=== PATIENT | female | born 1955 | race African-American/Black ===

== ENCOUNTER 2018-10-08 05:14 | Emergency (ER) | payer OTHER ==
[~2018-10-08] VITALS: Ht 162.6 cm; Wt 92.5 kg
[2018-10-08 05:16] VITALS: BP 138/74
--- NOTE | 2018-10-08 08:03 | NUR ---
DANIELLE CALLED FOR HOMELESS RESOURCES/PLACEMENT
--- NOTE | 2018-10-08 08:40 | NUR ---
KAMRYN SANTOS WITH PT; PROVIDED WITH RESOURCES. MD SALEH.
--- NOTE | 2018-10-08 08:46 | NUR ---
SW received a call from ER ARTURO Ly regarding homeless discharge and resources. Pt. is a 63 year old male who was brought in by paramedics because it was too cold outside. KAMRYN met with pt. bedside. Pt. is alert and oriented x 4. Pt. appeared disheveled and smelled of urine. Pt. is cooperative and pleasant with SW during the assessment. Pt. states she is homeless and has been for a while. Pt. states she receives $1000 per month in [place]. KAMRYN offered pt. [facility] and pt. would like her contact since she is not able to pay for the independent living today. KAMRYN gave pt. [facility] contact number . Pt. stated she will borrow the money from her vegetable cook and call [facility]. KAMRYN offered pt. [facility] placement and homeless long-term resources that pt. accepted. KAMRYN explained to pt. regarding strip picker locations for winter long-term for [facility]. Pt. understood. Pt. states she has a membership with [employer] and goes there to take showers etc. Pt. stated she will go to [facility] once she leaves the hospital. [facility] is located at [address] [place] [address]. Pt. denies any drug use but states she drinks a beer every now and then. Pt. denies any suicidal and homicidal ideations. Pt. was given warm clothes, shoes, breakfast and TAP card. Homeless Patient Waiver Form was signed by pt. and placed in pt's chart. ED ARTURO Ly, Dr. Aponte and NIRMALA Kern were updated on pt's discharge plan. No other social service needs are requested at this time. SW is available, if needed.
== END 2018-10-08 09:18 | disposition home or self-care (01) ==
LOC: EDBD 05:16 → ER 05:16
DX: T69.9XXA Effect of reduced temperature, unspecified, initial encounter (principal); X31.XXXA Exposure to excessive natural cold, initial encounter; Z59.0 Homelessness; I10 Essential (primary) hypertension; Z86.73 Personal history of transient ischemic attack (TIA), and cerebral infarction without residual deficits

== ENCOUNTER 2019-06-08 00:03 | Emergency (ER) | payer MEDICARE, OTHER ==
[~2019-06-08] VITALS: Ht 167.6 cm; Wt 67.1 kg
--- NOTE | 2019-06-08 00:15 | NUR ---
PT BIBRA C/O ABDOMINAL PAIN X1 DAY. PT ALSO C/O NAUSEA AND VOMITTING. PT DENIES DYSURIA, HEMATURIA, CP, SOB, DIARRHEA. PT STATES "I WAS MOVING BOXES AROUND AND MUST'VE OVER-WORKED MYSELF". PT AAOX4, PT APPEARS UNCOMFORTABLE . NOTED HYPERTENSION ON ARRIVAL, MD AWARE. PT PLACED ON CONTINUOUS WOOL TAMPER AND PULSE OX, WILL CONTINUE TO MONITOR
--- NOTE | 2019-06-08 00:28 | NUR ---
ER MD AT BEDSIDE FOR EVALUATION
[2019-06-08] MEDS ORDERED: ONDANSETRON HCL/PF 4 MG/2 ML VIAL ONE ×2 (00:32→05:58)
--- NOTE | 2019-06-08 00:40 | NUR ---
IV INITIATED R FOREARM 20G. LABS DRAWN FROM SITE. FITNESS CLUB MANAGER AT BEDSIDE FOR COLLECTION. IV INTACT AND PATENT, PLACED ON SALINE LOCK
[2019-06-08 00:50] LABS: BASOPHILS # (AUTO) 0.1 /CMM (0.0-0.2); BASOPHILS % (AUTO) 0.7 % (0.0-2.0); EOSINOPHILS % (AUTO) 0.2 % (0.0-6.0); HEMATOCRIT 34 % (33-45); HEMOGLOBIN 11.5 g/dL (11.5-14.8); LYMPHOCYTES # (AUTO) 1.7 /CMM (0.8-4.8); LYMPHOCYTES % (AUTO) 20.5 % (20.0-44.0); MEAN CORPUSCULAR HGB CONC 34 g/dl (31.0-36.0); MEAN CORPUSCULAR VOLUME 84 fL (82-100); MONOCYTES # (AUTO) 0.4 /CMM (0.1-1.30); MONOCYTES % (AUTO) 5.4 % (2.0-12.0); NEUTROPHILS # (AUTO) 5.9 /CMM (1.8-8.9); NEUTROPHILS % (AUTO) 73.2 % (43.0-81.0); PLATELET COUNT (AUTO) 150 /CMM (150-450); RED BLOOD CELL COUNT(AUTO) 4.05 MIL/uL (4.0-5.2); WHITE BLOOD COUNT (AUTO) 8.1 K/uL (4.3-11.0)
--- NOTE | 2019-06-08 00:52 | NUR ---
PT UNABLE TO PROVIDE URINE SAMPLE AT THIS TIME. ER AWARE
[2019-06-08 00:56] LABS: CALCIUM, SERUM 9.9 mg/dL (8.5-10.1); CREATININE 1.1 mg/dL (0.6-1.3); POTASSIUM 3.7 mmol/L (3.5-5.1)
[2019-06-08] MEDS ORDERED: IV NS 0.9% 1,000 ML BAG IV ONE (01:00)
[2019-06-08] MEDS ORDERED: ONDANSETRON HCL/PF 4 MG/2 ML VIAL IVP ONE (01:00)
[2019-06-08 01:03] LABS: ALBUMIN 5.1 g/dL (3.4-5.0); BILIRUBIN,DIRECT 0.4 mg/dL (0.0-0.2); BILIRUBIN,TOTAL 1.3 mg/dL (0.2-1.0); TOTAL PROTEIN, SERUM 9.2 g/dL (6.4-8.2)
[2019-06-08] MEDS ORDERED: IOHEXOL-300 100 ML VIAL IV ONE (01:03)
--- NOTE | 2019-06-08 01:13 | NUR ---
PT BROUGHT BY RADIOLOGY TO CT
--- NOTE | 2019-06-08 01:25 | NUR ---
PT RETURNED FROM CT
[2019-06-08] MEDS ORDERED: IV NS 0.9% 1,000 ML IV PRN ×2 (01:30)
[2019-06-08 01:49] LABS: APPEARANCE,URINE Slightly Cloudy (CLEAR); BILIRUBIN,URINE SMALL (NEGATIVE); BLOOD, URINE Small Ery/uL (NEGATIVE); COLOR,URINE Other (YELLOW); KETONES,URINE >=160 (NEGATIVE); LEUKOCYTE ESTERASE ,URINE Negative (NEGATIVE); NITRITE, URINE Negative (NEGATIVE); PH,URINE 5.5 (5.0-8.0); PROTEIN,URINE 100 mg/dl (NEGATIVE); UGLUCOSE Negative (NEGATIVE); UROBILINOGEN,URINE 0.2 EU/dL (0.2)
[2019-06-08] MEDS ORDERED: MORPHINE SULFATE INJ 2 MG/ML DISP.SYRIN IV ONE ×2 (02:00→06:00)
[2019-06-08] MEDS ORDERED: MORPHINE SULFATE INJ 4 MG/ML DISP.SYRIN ONE (02:17)
[2019-06-08 02:43] LABS: BACTERIA,URINE Few /HPF (None Seen); SQUAMOUS EPITHELIAL CELL,UR Many /HPF (None Seen); YEAST,URINE Few /HPF (None Seen)
--- NOTE | 2019-06-08 05:15 | NUR ---
JAVA WEB SERVICES DEVELOPER AT BEDSIDE FOR REDRAW
[2019-06-08 05:31] LABS: CALCIUM, SERUM 8.1 mg/dL (8.5-10.1); POTASSIUM 3.6 mmol/L (3.5-5.1)
[2019-06-08] MEDS ORDERED: MORPHINE SULFATE INJ 2 MG/ML DISP.SYRIN ONE (05:58)
[2019-06-08] MEDS ORDERED: ONDANSETRON HCL/PF 4 MG/2 ML VIAL IV ONE (06:00)
[2019-06-08 06:58] VITALS: BP 189/91
--- NOTE | 2019-06-08 06:59 | NUR ---
Patient given written and verbal discharge instructions. Patient verbalizes understanding of instructions. Patient is ambulatory with steady gait. Refuses offer of fpc placement. Patient given list of available shelters in surrounding area.IV removed. Catheter intact and site benign. Pressure and 4x4 applied to site. No bleeding noted.
== END 2019-06-08 07:05 | disposition home or self-care (01) ==
LOC: ER 00:06
DX: R56.9 Unspecified convulsions (principal); R11.2 Nausea with vomiting, unspecified; R10.30 Lower abdominal pain, unspecified; I10 Essential (primary) hypertension; E11.9 Type 2 diabetes mellitus without complications; F17.200 Nicotine dependence, unspecified, uncomplicated; Z59.0 Homelessness; Z86.73 Personal history of transient ischemic attack (TIA), and cerebral infarction without residual deficits
CPT/HCPCS: 36415; 70450; 74177; 80048 ×2; 80076; 81001; 82550; 83690; 85025; 96361; 96374; 96375; 96376; 99284; J2270 ×2; J2405 ×2; J7030 ×3; Q9967; 81000-TC

== ENCOUNTER 2019-06-09 20:10 | Emergency (ER) | payer OTHER ==
[~2019-06-09] VITALS: Ht 170.2 cm; Wt 63.5 kg
[2019-06-09 20:14] VITALS: BP 113/79
[2019-06-09] MEDS ORDERED: ONDANSETRON HCL 4 MG/5 ML SOLUTION PO ONE (20:30)
[2019-06-09] MEDS ORDERED: LEVETIRACETAM (250 MG) 250 MG TABLET PO ONE ×2 (20:30→21:02)
[2019-06-09] MEDS ORDERED: ONDANSETRON HCL 4 MG/5 ML SOLUTION ONE (21:02)
== END 2019-06-09 21:38 | disposition home or self-care (01) ==
LOC: ER 20:11
DX: R11.0 Nausea (principal); G40.909 Epilepsy, unspecified, not intractable, without status epilepticus; I10 Essential (primary) hypertension; E11.9 Type 2 diabetes mellitus without complications; Z86.73 Personal history of transient ischemic attack (TIA), and cerebral infarction without residual deficits; Z59.0 Homelessness
CPT/HCPCS: Q0162

== ENCOUNTER 2019-11-06 21:14 | Emergency (ER) | payer OTHER ==
[~2019-11-06] VITALS: Ht 170.2 cm; Wt 63.5 kg
--- NOTE | 2019-11-06 21:23 | NUR ---
BIBRA FOR C/O BILATERAL KNEE PAIN. - TAUMA
[2019-11-06] MEDS ORDERED: ACETAMINOPHEN ES 500 MG TABLET PO ONE (21:30)
[2019-11-06] MEDS ORDERED: LISINOPRIL (10MG) 10 MG TABLET PO SCH (21:30)
[2019-11-06] MEDS ORDERED: ACETAMINOPHEN ES 500 MG TABLET ONE (21:40)
[2019-11-06] MEDS ORDERED: LISINOPRIL (10MG) 10 MG TABLET ONE (21:44)
--- NOTE | 2019-11-06 22:07 | NUR ---
Patient refused written and verbal discharge instructions. Refuses offer of jail placement and stated "go away". Patient given warm balnket, socks and snacks. has proper clothes on. pt will arrange her own transportation.
[2019-11-06 22:13] VITALS: BP 153/80
== END 2019-11-06 22:18 | disposition home or self-care (01) ==
LOC: ER 21:15
DX: I10 Essential (primary) hypertension (principal); F10.10 Alcohol abuse, uncomplicated; M25.50 Pain in unspecified joint; Z91.14 Patient's other noncompliance with medication regimen; E11.9 Type 2 diabetes mellitus without complications; Z86.73 Personal history of transient ischemic attack (TIA), and cerebral infarction without residual deficits; Z59.0 Homelessness; Y90.9 Presence of alcohol in blood, level not specified

== ENCOUNTER 2020-11-30 14:46 | Emergency (ER) | payer OTHER ==
[~2020-11-30] VITALS: Ht 165.1 cm; Wt 63.5 kg
--- NOTE | 2020-11-30 15:00 | NUR ---
[facility]IB [facility], ETOH FOUND PASSED OUT W/ EMPTY BOTTLES BG [address] [place] TEAM LEADER. HYPOTENSIVE PER EMS REPORT. PATIENT A/OX3, BREATHING EVEN AND UNLABORED, NO SOB NOTED, NEEDS ATTENDED.
[2020-11-30] MEDS: IV NS 0.9% 1,000 ML BAG IV ONE (15:13)
[2020-11-30 15:23] LABS: BASOPHILS # (AUTO) 0.1 /CMM (0.0-0.2); BASOPHILS % (AUTO) 1.4 % (0.0-2.0); EOSINOPHILS % (AUTO) 1.6 % (0.0-6.0); HEMATOCRIT 25 % (33-45); HEMOGLOBIN 8.3 g/dL (11.5-14.8); LYMPHOCYTES % (AUTO) 44.7 % (20.0-44.0); MEAN CORPUSCULAR HGB CONC 33 g/dl (31.0-36.0); MEAN CORPUSCULAR VOLUME 88 fL (82-100); MONOCYTES # (AUTO) 0.4 /CMM (0.1-1.30); MONOCYTES % (AUTO) 5.9 % (2.0-12.0); NEUTROPHILS # (AUTO) 3.2 /CMM (1.8-8.9); NEUTROPHILS % (AUTO) 46.4 % (43.0-81.0); PLATELET COUNT (AUTO) 380 /CMM (150-450); RED BLOOD CELL COUNT(AUTO) 2.88 MIL/uL (4.0-5.2); WHITE BLOOD COUNT (AUTO) 6.8 K/uL (4.3-11.0)
[2020-11-30 15:46] LABS: CARBON DIOXIDE 24 mmol/L (21-32); CHLORIDE 109 mmol/L (98-107); CREATININE 0.8 mg/dL (0.6-1.3); GLUCOSE 77 mg/dL (74-106); POTASSIUM 3.6 mmol/L (3.5-5.1); SODIUM SERUM 149 mmol/L (136-145); UREA NITROGEN, BLOOD 14 mg/dL (7-18)
[2020-11-30 15:53] LABS: ALANINE AMINOTRANSFERASE 21 U/L (12-78); ALBUMIN 3.5 g/dL (3.4-5.0); ALKALINE PHOSPHATASE 101 U/L (46-116); ASPARTATE AMINOTRANSFERASE 37 U/L (15-37); BILIRUBIN,DIRECT 0.1 mg/dL (0.0-0.2); BILIRUBIN,TOTAL 0.2 mg/dL (0.2-1.0); LIPASE 77 U/L (73-393); TOTAL PROTEIN, SERUM 7.4 g/dL (6.4-8.2)
[2020-11-30 16:02] LABS: BILIRUBIN,URINE NEGATIVE (NEGATIVE); COLOR,URINE YELLOW (YELLOW); LEUKOCYTE ESTERASE ,URINE LARGE (NEGATIVE); NITRITE, URINE NEGATIVE (NEGATIVE); PROTEIN,URINE TRACE mg/dl (NEGATIVE); UGLUCOSE NEGATIVE (NEGATIVE); UROBILINOGEN,URINE 0.2 EU/dL (0.2)
[2020-11-30] MEDS ORDERED: LEVE500T20 PO (16:14)
[2020-11-30] MEDS ORDERED: ATOR10TA PO (16:14)
[2020-11-30] MEDS ORDERED: LISI-768 PO (16:14)
[2020-11-30] MEDS ORDERED: PANT40TA49 PO (16:14)
[2020-11-30] MEDS ORDERED: POTA8TAB3 PO (16:14)
[2020-11-30] MEDS ORDERED: FOLI0.4T6 PO (16:14)
[2020-11-30] MEDS ORDERED: CEFTRIAXONE 1GM BAG (ER ONLY) 50 ML IV ONE (16:23)
[2020-11-30] MEDS: IV LR 1000 ML 1,000 ML IV ONE (16:24)
[2020-11-30] MEDS: CEFTRIAXONE 1GM BAG (ER ONLY) 1 GM/50 ML PIGGYBACK IV ONE (16:24)
--- NOTE | 2020-11-30 16:31 | NUR ---
room [facility]
--- NOTE | 2020-11-30 16:36 | NUR ---
COVID SWAB SENT
[2020-11-30 16:40] LABS: BACTERIA,URINE Many /HPF (None Seen); SQUAMOUS EPITHELIAL CELL,UR Few /HPF (None Seen); WBC,URINE 81-100 /HPF (0-3)
[2020-11-30] MEDS ORDERED: ACETAMINOPHEN 325 MG TABLET PO PRN (17:00)
[2020-11-30] MEDS ORDERED: CEFTRIAXONE 1 G in IV D5W 50 ML IV SCH (17:00)
[2020-11-30] MEDS ORDERED: LORAZEPAM 1 MG TABLET PO PRN (17:00)
[2020-11-30] MEDS ORDERED: IV 1/2NS 1000 ML 1,000 ML IV PRN (17:00)
--- NOTE | 2020-11-30 17:31 | NUR ---
RECEIVED A CALL FROM DR. NEVILLE FROM [facility], WANTS TO FACILITATE TRANSFER TO ANOTHER HOSPITAL.
--- NOTE | 2020-11-30 17:42 | NUR ---
RECIEVED A CALL FROM [facility] CASTRO TAVERN KEEPER. REQUESTING THAT WE COLLECT A RAPID COVID TEST FROM PATIENT. STILL WORKING ON TRANSFER TO A CONTRACT FACILITY.
[2020-11-30] MEDS ORDERED: ASPIRIN EC 81 MG TABLET.DR PO SCH (17:44)
[2020-11-30] MEDS ORDERED: ATORVASTATIN 10 MG TABLET PO SCH (18:00)
--- NOTE | 2020-11-30 18:04 | NUR ---
PATIENT IS EATING DINNER AND TOLERATING WELL.
--- NOTE | 2020-11-30 18:04 | NUR ---
COVID SWAB SENT TO LAB.
--- NOTE | 2020-11-30 18:12 | NUR ---
RYAN CASTRO [phone] RESULT.
--- NOTE | 2020-11-30 19:16 | NUR ---
PATIENT IS AMBULATORY TO THE RESTROOM WITH A STEADY GAIT.
--- NOTE | 2020-11-30 19:50 | NUR ---
CALLED [facility] FOR FOLLOW UP REGARDING CT OF HEAD
--- NOTE | 2020-11-30 20:39 | NUR ---
head ct and antigen covid result were faxed to [facility]
[2020-11-30] MEDS ORDERED: LEVETIRACETAM (250 MG) 250 MG TABLET PO SCH (20:45)
--- NOTE | 2020-11-30 22:04 | NUR ---
TRANSFER INFO: TO [facility] RM: [id number] REPORT TO:JASON SILVESTRE # FOR REPORT: [phone] [facility], ETA: [phone] ACCEPTING MD: DR ROONEY
[2020-11-30] MEDS ORDERED: ONDANSETRON HCL/PF 4 MG/2 ML VIAL ONE (23:08)
[2020-11-30] MEDS: ONDANSETRON HCL/PF 4 MG/2 ML VIAL IV ONE (23:17)
--- NOTE | 2020-11-30 23:33 | NUR ---
REPORT GIVEN TO JASON SILVESTRE
--- NOTE | 2020-12-01 00:50 | NUR ---
CALLED RYAN THE TO INQUIRE ABOUT THE TRANSPORTATION. NO ANSWER. LEFT A MESSAGE
--- NOTE | 2020-12-01 00:52 | NUR ---
CALLED [facility] AND SPOKE TO ANNI TO F/U WITH THE TRANSPORTATION. PER ANNI, THEY WON'T BE ABLE TO ACCOMODATE THE TRANSPO AND THEY HAVE ALREADY SPOKE TO STEPHANIE DAVIS!
--- NOTE | 2020-12-01 01:22 | NUR ---
UPDATED ETA 0330 BY [facility]
[2020-12-01] MEDS ORDERED: HYDROCODONE/APAP 10/325MG TABLET ONE (02:06)
--- NOTE | 2020-12-01 02:50 | NUR ---
PATIENT STATES THAT SHE HAS PAIN ON BOTH OF HER FEET. MD NOTIFIED. ORDERED TO GIVE NORCO-10MG PO. WILL MEDICATE PATIENT ORDERED.
[2020-12-01] MEDS: HYDROCODONE/APAP 10/325MG TABLET PO ONE (03:00)
[2020-12-01 03:21] VITALS: BP 131/79
--- NOTE | 2020-12-01 03:49 | NUR ---
REPORT GIVEN TO TRANSPORT TEAM FOR [facility]. AND TRANSFERRING RESPONSIBILITIES.
[2020-12-01] MEDS ORDERED: PANTOPRAZOLE 40 MG TABLET.DR PO SCH (07:30)
[2020-12-01] MEDS ORDERED: THIAMINE HCL 100 MG TABLET PO SCH (09:00)
[2020-12-01] MEDS ORDERED: LEVETIRACETAM (250 MG) 250 MG TABLET PO SCH (09:00)
[2020-12-01] MEDS ORDERED: LISINOPRIL (10MG) 10 MG TABLET PO SCH (09:00)
[2020-12-01] MEDS ORDERED: FOLIC ACID 1 MG TABLET PO SCH (09:00)
== END 2020-12-01 03:51 | disposition short-term general hospital (02) ==
LOC: ER 14:51
DX: T51.0X1A Toxic effect of ethanol, accidental (unintentional), initial encounter (principal); G92 Toxic encephalopathy; Y92.480 Sidewalk as the place of occurrence of the external cause; R55 Syncope and collapse; E86.0 Dehydration; N39.0 Urinary tract infection, site not specified; D64.9 Anemia, unspecified; Z86.73 Personal history of transient ischemic attack (TIA), and cerebral infarction without residual deficits; Z59.0 Homelessness; F10.129 Alcohol abuse with intoxication, unspecified; Y90.8 Blood alcohol level of 240 mg/100 ml or more; I10 Essential (primary) hypertension; Z93.1 Gastrostomy status; Z79.899 Other long term (current) drug therapy
CPT/HCPCS: 36415; 70450; 71045; 80048; 80076; 80320; 81001; 83690; 84484; 85025; 87086; 87186; 87426; 93005; 96361; 96365; 96375; 99285; J0696; J2405; J7030; J7120 ×2; C9803; G0480; U0003

== ENCOUNTER 2021-08-07 09:59 | Inpatient (IN) | payer MEDICARE, OTHER ==
[~2021-08-07] VITALS: Ht 167.6 cm; Wt 64.0 kg
[~2021-08-07 09:59] MED LIST: ATOR10TA PO; FOLI0.4T6 PO; LEVE500T20 PO; LISI-768 PO; PANT40TA49 PO; POTA8TAB3 PO
--- NOTE | 2021-08-07 10:10 | NUR ---
The patient is bibra78, from street, altered, BS 22, D50 given on scene BS went up 121 IV NS infusing. Attached to the monitor. Warm blanket provided. Will continue to monitor the patient.
[2021-08-07] MEDS ORDERED: IV NS 0.9% 1,000 ML BAG IV ONE ×2 (10:30→11:30)
--- NOTE | 2021-08-07 10:30 | NUR ---
URINE COLLECTED AND SENT TO THE LAB
--- NOTE | 2021-08-07 10:30 | NUR ---
IV LINE ESTABLISHED BLOOD DRAWN AND SENT TO LAB.
--- NOTE | 2021-08-07 10:35 | NUR ---
THE BEAR HUGGER ON
--- NOTE | 2021-08-07 10:55 | NUR ---
MOVE SHEET SUBMITTED AND CALLED FOR ICU
--- NOTE | 2021-08-07 10:57 | NUR ---
ELECTRIC MOTOR REPAIRMAN AT BEDSIDE FOR XRAY.
[2021-08-07 10:59] LABS: CALCIUM, SERUM 8.4 mg/dL (8.5-10.1); CHLORIDE 96 mmol/L (98-107); CREATININE 2.4 mg/dL (0.6-1.3); GLUCOSE 111 mg/dL (74-106); POTASSIUM 4.2 mmol/L (3.5-5.1); SODIUM SERUM 139 mmol/L (136-145); UREA NITROGEN, BLOOD 36 mg/dL (7-18)
--- NOTE | 2021-08-07 11:00 | NUR ---
CALLED FOR PICC LINE
[2021-08-07 11:04] LABS: BASOPHILS # (AUTO) 0.1 K/uL (0.0-0.2); BASOPHILS % (AUTO) 1.2 % (0.0-2.0); EOSINOPHILS % (AUTO) 0.1 % (0.0-6.0); HEMATOCRIT 30 % (33-45); HEMOGLOBIN 9.7 g/dL (11.5-14.8); LYMPHOCYTES # (AUTO) 1.4 K/uL (0.8-4.8); LYMPHOCYTES % (AUTO) 16.8 % (20.0-44.0); MEAN CORPUSCULAR HGB CONC 33 g/dl (31.0-36.0); MEAN CORPUSCULAR VOLUME 84 fL (82-100); MONOCYTES # (AUTO) 0.1 K/uL (0.1-1.30); MONOCYTES % (AUTO) 1.4 % (2.0-12.0); NEUTROPHILS # (AUTO) 6.7 K/uL (1.8-8.9); NEUTROPHILS % (AUTO) 80.5 % (43.0-81.0); PLATELET COUNT (AUTO) 412 K/uL (150-450); RED BLOOD CELL COUNT(AUTO) 3.54 MIL/uL (4.0-5.2); WHITE BLOOD COUNT (AUTO) 8.4 K/uL (4.3-11.0)
[2021-08-07 11:06] LABS: BILIRUBIN,URINE SMALL (NEGATIVE); COLOR,URINE YELLOW (YELLOW); LEUKOCYTE ESTERASE ,URINE NEGATIVE (NEGATIVE); NITRITE, URINE NEGATIVE (NEGATIVE); PH,URINE 5.5 (5.0-8.0); PROTEIN,URINE 100 mg/dl (NEGATIVE); UGLUCOSE NEGATIVE (NEGATIVE); UROBILINOGEN,URINE 0.2 EU/dL (0.2)
[2021-08-07 11:08] LABS: CARBON DIOXIDE 8 mmol/L (21-32)
[2021-08-07 11:14] LABS: ALANINE AMINOTRANSFERASE 60 U/L (12-78); ALBUMIN 3.6 g/dL (3.4-5.0); ALKALINE PHOSPHATASE 117 U/L (46-116); ASPARTATE AMINOTRANSFERASE 169 U/L (15-37); BILIRUBIN,DIRECT 0.2 mg/dL (0.0-0.2); BILIRUBIN,TOTAL 0.4 mg/dL (0.2-1.0); TOTAL PROTEIN, SERUM 7.3 g/dL (6.4-8.2)
[2021-08-07] MEDS ORDERED: CEFTRIAXONE 1GM BAG (ER ONLY) 50 ML IV ONE ×2 (11:15→11:30)
--- NOTE | 2021-08-07 11:27 | NUR ---
COVID ANTIGEN SWAB DONE AND SENT TO THE LAB
--- NOTE | 2021-08-07 11:29 | NUR ---
[facility] CALLED SENIOR JAVA DATA ARCHITECT PAGED.
--- NOTE | 2021-08-07 11:46 | NUR ---
COVID PCR SWAB DONE AND SENT TO THE LAB
[2021-08-07 11:48] LABS: BACTERIA,URINE Few /HPF (None Seen); RBC,URINE 0-2 /HPF (0-2); SQUAMOUS EPITHELIAL CELL,UR Moderate /HPF (None Seen); URINE AMORPHOUS URATE Moderate /HPF (None Seen); WBC,URINE 0-2 /HPF (0-3)
[2021-08-07] MEDS ORDERED: ASPIRIN 300 MG/SUPP.RECT RC ONE ×2 (12:00→12:13)
--- NOTE | 2021-08-07 12:08 | NUR ---
THE PATIENT IS AWAKE, ALERT TO SELF AND COMMUNICATES VERBALLY. THE PATIENT SAID "THANK YOU FOR HELPING ME". RESPIRATION REGULAR AND UNLABORED. ATTACHED TO THE MONITOR. BEAR HUGGER ON. WILL CONTINUE TO MONITOR THE PATIENT.
--- NOTE | 2021-08-07 12:50 | NUR ---
THE PATIENT IS TAKEN TO CT
--- NOTE | 2021-08-07 13:15 | NUR ---
THE PATIENT IS BACK FROM CT
[2021-08-07 13:16] LABS: BAND % (MANUAL) 1 % (0.0-5.0); LYMPHOCYTES % (MANUAL) 18 % (16-48); MONOCYTES % (MANUAL) 1 % (0-11.0); NEUTROPHILS % (MANUAL) 80 (42-76)
--- NOTE | 2021-08-07 18:42 | NUR ---
dr stoddard made aware of accucheck low. received and order of dextrose. the order is read back, verified. noted and carried out.
[2021-08-07] MEDS ORDERED: DEXTROSE 50%-WATER 50 ML DISP.SYRIN ONE ×2 (18:45→20:16)
[2021-08-07] MEDS ORDERED: MAGNESIUM HYDROXIDE 30 ML UDC PO PRN (19:00)
[2021-08-07] MEDS ORDERED: Z GUARD REMEDY 2 OZ OINT TP PRN (19:00)
[2021-08-07] MEDS ORDERED: MAG HYDROX/AL HYDROX/SIMETH 30 ML UDC PO PRN (19:00)
[2021-08-07] MEDS ORDERED: ENOXAPARIN SODIUM 40 MG/0.4 ML DISP.SYRIN SQ SCH (19:00)
[2021-08-07] MEDS ORDERED: ENOXAPARIN SODIUM 30 MG/0.3 ML DISP.SYRIN SQ SCH ×2 (19:00)
[2021-08-07] MEDS ORDERED: IV 1/2NS 1000 ML 1,000 ML IV PRN (19:00)
[2021-08-07] MEDS ORDERED: ZOLPIDEM TARTRATE 5 MG TABLET PO PRN (19:00)
--- NOTE | 2021-08-07 19:00 | NUR ---
DR ZAMUDIO MADE AWARE OF BLOOD SUGAR 55. NO NEW ORDER PER DR ZAMUDIO. THE PATIENT REMAINS ALERT AND ORIENTED TO SELF. IN NO APPARENT DISTRESS.
--- NOTE | 2021-08-07 19:09 | NUR ---
BLOOD SUGAR IS 82. DR ZAMUDIO MADE AWARE WITH NO NEW ORDERS.
[2021-08-07] MEDS ORDERED: DEXTROSE 50%-WATER 50 ML DISP.SYRIN IVP ONE (19:30)
[2021-08-07] MEDS ORDERED: DEXTROSE 50%-WATER 50 ML DISP.SYRIN IV PRN (19:30)
--- NOTE | 2021-08-07 19:30 | NUR ---
MRSA SWAB COLLECTED AND SENT TO LAB. PATIENT'S BELONGINGS LIST DONE.
[2021-08-07] MEDS ORDERED: ONDANSETRON HCL/PF 4 MG/2 ML VIAL ONE (19:44)
[2021-08-07] MEDS: ONDANSETRON HCL/PF 4 MG/2 ML VIAL IVP PRN (19:48)
--- NOTE | 2021-08-07 20:05 | NUR ---
REPORT GIVEN TO PERNELL SILVESTRE FOR [facility]
--- NOTE | 2021-08-07 20:19 | NUR ---
PRIOR TO TRANSFERRING PT, PT'S BG NOTED TO BE 32, ADMINISTERED D50 IVP. WILL PROVIDE PT WITH OJ WELL.
--- NOTE | 2021-08-07 20:38 | NUR ---
PT TRANSFERED PER ACLS PROTOCOL
--- NOTE | 2021-08-07 20:50 | NUR ---
RN NOTES RECEIVED CARE OF PATIENT FROM ER. TIME OF TRANSPORT WAS 2039
--- NOTE | 2021-08-07 20:51 | NUR ---
RN OPENING NOTES PATIENT TRANSFERRED TO [facility], PRESENTING WITH NAUSEA AND VOMITING, LOW BLOOD SUGAR. PATIENT IS A/O X3, ABLE TO VERBALIZE NEEDS. PATIENT'S SKIN IS INTACT. PATIENT WAS PLACED ON O2 THERAPY VIA NC AT 2L/MIN, O2 SAT IS 100 AT THIS TIME. PATIENT COMPLAINS OF PAIN, CURRENTLY PATIENT HAS NO PAIN MEDICATION ON FILE, WILL MAKE VANI GARCIA PLANT MECHANIC AWARE. WILL CLOSELY PERFORM GLUCOSE MONITORING. WILL MONITOR FOR ANY CHANGES THROUGHOUT THE SHIFT.
--- NOTE | 2021-08-07 21:13 | NUR ---
[facility] RN NOTE INFORMED VANI GARCIA BINDER STRIPPER HAND THAT PT BS KEEP ON DROPPING FROM ER AND GIVEN D50 LATEST BS WAS 32 AND AFTER D 50 CAME UP TO 134 ALSO TROP LEVEL WENT UP TO 0.355. PT IN NO DISTRESS. VANI GAVE NEW ORDERS, ORDERS NOTED AND CARRIED OUT. INFORMED NURSE GIMENEZ TO FOLLOW UP WITH PT AND MEDS.
[2021-08-07] MEDS: IV D5/0.45 NACL 1,000 ML IV PRN (21:20)
[2021-08-07] MEDS: BLOOD SUGAR DIAGNOSTIC 1 EACH STRIP IN SCH (22:35)
[2021-08-07 23:00] VITALS: BP 131/53
[2021-08-08] VITALS: BP 120/68
--- NOTE | 2021-08-08 01:12 | NUR ---
RN NOTES RANDALL FROM LABORATORY CALLED FOR A CRITICAL LAB VALUE: TROPONIN LEVEL OF 2.849. INFORMED VANI GARCIA TIRE RECAPPER. AWAITING NEW ORDERS AT THIS TIME. WILL CONTINUE TO MONITOR PATIENT.
--- NOTE | 2021-08-08 01:29 | NUR ---
[facility] RN NOTE INFORMED VANI GARCIA COMPLIANCE EXAMINER REGARDING PT TROP LEVEL WENT UP 2.849 AND PT C/O CHEST PAIN AND GENERALIZED PAIN 8/10. COMPLIANCE EXAMINER JOSE GAVE NEW ORDERS, ORDERS NOTED AND CARRIED OUT. INFORMED NURSE PERNELL TO FOLLOW UP.
[2021-08-08] MEDS ORDERED: ASPIRIN 81 MG TAB.CHEW PO ONE (01:30)
[2021-08-08] MEDS ORDERED: ENOXAPARIN SODIUM 80 MG/0.8 ML DISP.SYRIN SQ SCH ×2 (01:30→02:00)
[2021-08-08] MEDS: MORPHINE SULFATE INJ 2 MG/ML DISP.SYRIN IV PRN (01:48)
[2021-08-08] MEDS: ACETAMINOPHEN 325 MG TABLET PO PRN (03:58)
[2021-08-08 04:00] VITALS: BP 124/59
[2021-08-08 06:44] LABS: CALCIUM, SERUM 6.9 mg/dL (8.5-10.1); CREATININE 2.7 mg/dL (0.6-1.3); MAGNESIUM 1.3 mg/dL (1.8-2.4); PHOSPHORUS 2.8 mg/dL (2.5-4.9); POTASSIUM 3.7 mmol/L (3.5-5.1)
[2021-08-08 06:55] LABS: BASOPHILS % (AUTO) 0.1 % (0.0-2.0); HEMATOCRIT 24 % (33-45); HEMOGLOBIN 8.1 g/dL (11.5-14.8); LYMPHOCYTES # (AUTO) 1.1 K/uL (0.8-4.8); LYMPHOCYTES % (AUTO) 6.8 % (20.0-44.0); MEAN CORPUSCULAR HGB CONC 34 g/dl (31.0-36.0); MEAN CORPUSCULAR VOLUME 79 fL (82-100); MONOCYTES # (AUTO) 0.5 K/uL (0.1-1.30); MONOCYTES % (AUTO) 3.1 % (2.0-12.0); NEUTROPHILS # (AUTO) 14.3 K/uL (1.8-8.9); PLATELET COUNT (AUTO) 286 K/uL (150-450); RED BLOOD CELL COUNT(AUTO) 3.03 MIL/uL (4.0-5.2); WHITE BLOOD COUNT (AUTO) 15.9 K/uL (4.3-11.0)
--- NOTE | 2021-08-08 07:00 | NUR ---
RN CLOSING NOTES WILL ENDORSE PATIENT WHILE PATIENT IS IN BED, A/O X3, ABLE TO VERBALIZE NEEDS. PATIENT IS NOW ON ROOM AIR, O2 SAT IS 100 AT THIS TIME. NO DISTRESS NOTED, NO COMPLAINS OF PAIN. ALL SAFETY MEASURES IMPLEMENTED. WILL ENDORSE TO DAY SHIFT NURSE FOR [facility].
--- NOTE | 2021-08-08 07:12 | NUR ---
LOGGING OPERATIONS INSPECTOR OPENING NOTE RECEIVED PATIENT RESTING IN BED A/O X 3, ON ROOM AIR WITH NO COMPLAINTS OF SOB OR PAIN. SAFETY PROTOCOL IN PLACE, BED IN LOWEST POSITION, SIDE RAILS UP X 2, AND CALL LIGHT WITHIN REACH.
[2021-08-08] MEDS: IV D5/0.45 NACL 1,000 ML IV PRN ×2 (07:27→20:21)
[2021-08-08 07:33] LABS: THYROID STIMULATING HORMONE 0.982 uIU/mL (0.358-3.74)
[2021-08-08] MEDS: BLOOD SUGAR DIAGNOSTIC 1 EACH STRIP IN SCH ×4 (08:02→21:52)
[2021-08-08] MEDS: INSULIN REGULAR, HUMAN 100 UNIT/ML 3 ML VIAL SQ PRN ×4 (08:03→22:01)
[2021-08-08] MEDS: ASPIRIN EC 81 MG TABLET.DR PO SCH (08:16)
[2021-08-08] MEDS: PANTOPRAZOLE 40 MG TABLET.DR PO SCH (08:16)
[2021-08-08] MEDS: CEFTRIAXONE 1 G in IV D5W 50 ML IV SCH (12:30)
[2021-08-08] MEDS ORDERED: ENOXAPARIN SODIUM 60 MG/0.6 ML DISP.SYRIN SQ SCH (14:00)
--- NOTE | 2021-08-08 15:52 | NUR ---
RN NOTES RECEIVED PATIENT RESTING IN BED A/O X 3, ROOM AIR OXYGEN AT 100%, NO COMPLAINTS, NO PAIN, NO SOB, SAFETY PROTOCOL IN PLACE, BED IN LOWEST POSITION, SIDE RAILS UP X 2, ALL WHEELS LOCKED, ENCOURAGED TO EAT BREAKFAST AND LUNCH BUT DID NOT EAT MUCH, A FEW BITES EACH MEAL, ENCOURAGED WATER AND FLUIDS, SLEEPING MOST OF AM SHIFT, REPOSITIONED FOR COMFORT AND SAFETY MEASURES Q 2 HOURS OR MORE AND PATIENT ABLE TO MOVE SELF IN BED, ALL NEEDS MET IN A TIMELY MANNER, CALL LIGHT WITHIN REACH.
[2021-08-08] MEDS: METOPROLOL TARTRATE 25 MG TABLET PO SCH ×2 (16:26→21:55)
--- NOTE | 2021-08-08 19:30 | NUR ---
RN OPENING NOTE RECEIVED PATIENT IN BED. A/OX2. TOLERATING ROOM AIR. RESPIRATIONS ARE EVEN AND UNLABORED. NO S/S SOB NOTED. NO C/O PAIN AT THIS TIME. IN NO APPARENT DISTRESS. TELE MONITOR READS SINUS RHTYHM. IV ACCESS IN PHYLLIS MIDLINE RUNNING D51/2NS@125ML.HR. BED IS LOW AND LOCKED, HOB ELEVATED IN SEMI FOWLERS, SIDE RAILS UPX2, SAGE LIGHT WITHIN REACH.
[2021-08-08 20:00] VITALS: BP 156/81
[2021-08-09] VITALS: BP 139/72
[2021-08-09] MEDS: ACETAMINOPHEN 325 MG TABLET PO PRN (01:07)
--- NOTE | 2021-08-09 01:24 | NUR ---
RN NOTE CONFIRMED WITH VANI GARCIA FELLER OPERATOR, THAT PATIENT HAS AN ORDER FOR LOVENOX 60MG Q12HRS WAS DC AND NOW HAS ORDER FOR LOVENOX 60MG Q24HRS. LAST DOSE GIVEN AT 1400 THIS AFTERNOON, ASKED IF I SHOULD CHANGE ORDER TILL 1400. RECEIVED ORDER TO GIVE DOSE NOW AT 0200. ORDER READ BACK NOTED AND CARRIED OUT.
[2021-08-09] MEDS ORDERED: ENOXAPARIN SODIUM 60 MG/0.6 ML DISP.SYRIN SQ SCH (02:00)
[2021-08-09 04:00] VITALS: BP 147/86
[2021-08-09] MEDS: IV D5/0.45 NACL 1,000 ML IV PRN ×2 (06:17→15:29)
[2021-08-09 06:19] LABS: BASOPHILS # (AUTO) 0.1 K/uL (0.0-0.2); BASOPHILS % (AUTO) 0.4 % (0.0-2.0); EOSINOPHILS % (AUTO) 0.2 % (0.0-6.0); HEMATOCRIT 26 % (33-45); HEMOGLOBIN 8.5 g/dL (11.5-14.8); LYMPHOCYTES # (AUTO) 1.8 K/uL (0.8-4.8); LYMPHOCYTES % (AUTO) 13.5 % (20.0-44.0); MEAN CORPUSCULAR HGB CONC 33 g/dl (31.0-36.0); MEAN CORPUSCULAR VOLUME 81 fL (82-100); MONOCYTES # (AUTO) 0.5 K/uL (0.1-1.30); MONOCYTES % (AUTO) 3.6 % (2.0-12.0); NEUTROPHILS # (AUTO) 10.9 K/uL (1.8-8.9); NEUTROPHILS % (AUTO) 82.3 % (43.0-81.0); PLATELET COUNT (AUTO) 219 K/uL (150-450); RED BLOOD CELL COUNT(AUTO) 3.18 MIL/uL (4.0-5.2); WHITE BLOOD COUNT (AUTO) 13.3 K/uL (4.3-11.0)
[2021-08-09 06:39] LABS: CALCIUM, SERUM 8.1 mg/dL (8.5-10.1); CREATININE 1.1 mg/dL (0.6-1.3); MAGNESIUM 1.3 mg/dL (1.8-2.4); PHOSPHORUS 1.7 mg/dL (2.5-4.9); POTASSIUM 3.2 mmol/L (3.5-5.1)
--- NOTE | 2021-08-09 07:50 | NUR ---
RN CLOSING NOTE RESTING IN BED. A/OX2. NO RESP DISTRESS. NO PAIN NO DISTRESS. TELE READS SINUS RHYTHM. IV ACCESS MAINTIANED WITH D51/2NS@125ML.HR. BED REMAINS LOW AND LOCKED, HOB ELEVATED IN SEMI FOWLERS, SIDE RAILS UPX2, SAGE LIGHT WITHIN REACH. WILL ENDORSE TO ONCOMING SHIFT. Addendum: 08/09/21 at 1016 by ANNI JONES RN 0800 ROUNDS MADE ,BOTH HEELS WITH REDNESS PILLOWPLCE TOLERATED WILL MONITOR CLOSELY AND KEEP OFF LOAD AT ALL TIME
[2021-08-09 08:00] VITALS: BP 147/86
--- NOTE | 2021-08-09 08:00 | NUR ---
[facility] RN NOTE PATIENT IN BED , ALL NEEDS ATTENDED ON RA NO SOB NOTED AT THIS TIME, ON TELE MONITOR SR HR 76 , RT WRIST AND RT HAND AND RT UPPER ARM MID LINE IN PLACE ALL NEEDS ATTENDED RESTING COMFORTABLY AT THIS TIME
[2021-08-09] MEDS: METOPROLOL TARTRATE 25 MG TABLET PO SCH ×2 (09:23→20:09)
[2021-08-09] MEDS: PANTOPRAZOLE 40 MG TABLET.DR PO SCH (09:24)
[2021-08-09] MEDS: ASPIRIN EC 81 MG TABLET.DR PO SCH (09:24)
[2021-08-09] MEDS: INSULIN REGULAR, HUMAN 100 UNIT/ML 3 ML VIAL SQ PRN ×4 (09:25→22:15)
[2021-08-09] MEDS: BLOOD SUGAR DIAGNOSTIC 1 EACH STRIP IN SCH ×4 (09:28→22:14)
[2021-08-09] MEDS: POTASSIUM CHLORIDE 20 MEQ TAB.PRT.SR PO SCH ×2 (09:30→11:12)
[2021-08-09] MEDS: MAGNESIUM OXIDE 400 MG TABLET PO SCH ×2 (09:30→11:12)
[2021-08-09] MEDS ORDERED: K PHOS NEUTRAL 250 MG TABLET PO ONE (10:00)
[2021-08-09] MEDS: CEFTRIAXONE 1 G in IV D5W 50 ML IV SCH (10:05)
[2021-08-09 10:22] LABS: BAND % (MANUAL) 6 % (0.0-5.0); EOSINOPHILS % (MANUAL) 1 % (0-4); LYMPHOCYTES % (MANUAL) 10 % (16-48); MONOCYTES % (MANUAL) 5 % (0-11.0); NEUTROPHILS % (MANUAL) 76 (42-76)
[2021-08-09 10:23] LABS: METAMYELOCYTES % 2 % (0-0)
[2021-08-09 12:00] VITALS: BP 152/100
--- NOTE | 2021-08-09 12:20 | NUR ---
arelis rn note kidney us done as ordered
--- NOTE | 2021-08-09 13:30 | NUR ---
arelis ying note seen y Corrine ying access registrar updated patient condition , notified that has poor appetite
--- NOTE | 2021-08-09 15:01 | NUR ---
television inspector ote dr ibarra strike planning applications notified that bp now 173/97 hr 77 stated that will check it out
[2021-08-09 16:00] VITALS: BP 152/100
[2021-08-09] MEDS: ENOXAPARIN SODIUM 60 MG/0.6 ML DISP.SYRIN SQ SCH ×2 (16:06→16:10)
[2021-08-09] MEDS: LOSARTAN POTASSIUM 25 MG TABLET PO SCH (16:06)
--- NOTE | 2021-08-09 16:10 | NUR ---
telephone operator note Lovenox 60 mg sq given as ordered at 1605 delicate order
--- NOTE | 2021-08-09 18:27 | NUR ---
television and radio repairer note spoke with radiologist everette about cta angio stated we need clarified order ,coronary or without calcium , left a message to dr dale , awating for return call
--- NOTE | 2021-08-09 19:30 | NUR ---
RN NOTE PT RECEIVED IN BED RESTING. PT IS LETHARGIC. ON 2L OF O2 VIA NC SHOWING NO S/S OF RESP DISTRESS. BREATHING EVEN AND UNLABORED. PT IS ALERT AND ORIENTED X2-3. ON GRASSROOTS ORGANIZER SHOWING NSR. MONZON CATH NOTED. ON CARDIAC DIET. IV ACCESS NOTED ON RIGHT UPPER ARM MIDLINE. LINE FLUSHED, PATENT, AND INTACT WITH NO S/SX OF INFILTRATION. ALL SAFETY MEASURES IMPLEMENTED. CALL LIGHT WITHIN REACH. BED ALARM ON. BED LOCKED AND IN LOWEST POSITION. SIDE RAILS UP. WILL CONTINUE TO MONITOR AND ASSESS FOR ANY CHANGES DURING SHIFT.
[2021-08-09 20:00] VITALS: BP 182/98
[2021-08-09] MEDS: MORPHINE SULFATE INJ 2 MG/ML DISP.SYRIN IV PRN (20:07)
[2021-08-10] VITALS: BP 145/91
--- NOTE | 2021-08-10 01:26 | NUR ---
RN NOTE REPORT GIVEN TO NIRMALA MCKEON FOR [facility].
[2021-08-10] MEDS: IV D5/0.45 NACL 1,000 ML IV PRN (01:30)
[2021-08-10 04:00] VITALS: BP 180/95
[2021-08-10] MEDS: MORPHINE SULFATE INJ 2 MG/ML DISP.SYRIN IV PRN ×2 (04:09→21:12)
--- NOTE | 2021-08-10 04:09 | NUR ---
PRECISION LATHE OPERATOR NOTE PT C/O PAIN 04/05 ALL OVER, NOTED BP WENT UP 180/95, MORPHINE 1 MG IVP GIVEN CONTINUE TO MONITOR HER.
--- NOTE | 2021-08-10 04:39 | NUR ---
PLANNING MANAGEMENT IT SPECIALIST NOTE PAIN SUBSIDED. BED BATH GIVEN TOLERATED WELL.
[2021-08-10 05:56] LABS: BASOPHILS % (AUTO) 0.5 % (0.0-2.0); EOSINOPHILS % (AUTO) 0.8 % (0.0-6.0); HEMATOCRIT 26 % (33-45); LYMPHOCYTES # (AUTO) 1.9 K/uL (0.8-4.8); LYMPHOCYTES % (AUTO) 22.9 % (20.0-44.0); MEAN CORPUSCULAR HGB CONC 34 g/dl (31.0-36.0); MEAN CORPUSCULAR VOLUME 81 fL (82-100); MONOCYTES # (AUTO) 0.5 K/uL (0.1-1.30); MONOCYTES % (AUTO) 6.1 % (2.0-12.0); NEUTROPHILS # (AUTO) 5.9 K/uL (1.8-8.9); NEUTROPHILS % (AUTO) 69.7 % (43.0-81.0); PLATELET COUNT (AUTO) 171 K/uL (150-450); RED BLOOD CELL COUNT(AUTO) 3.26 MIL/uL (4.0-5.2); WHITE BLOOD COUNT (AUTO) 8.5 K/uL (4.3-11.0)
--- NOTE | 2021-08-10 06:30 | NUR ---
MANAGER CRITICAL CARE NOTE PT IN BED ASLEEP, EASILY AROUSABLE, NO DISTRESS OR DISCOMFORT NOTED. DENIES PAIN. IVF INFUSING WELL, NO S/S OF INFILTRATION. ON TELE SRSB HR 50'S, SIDE RAILS UP X 2 AND CALL LIGHT WITHIN REACH. WILL ENDORSE TO DAY SHIFT NURSE FOR CONTINUE TO CARE.
[2021-08-10 07:02] LABS: CALCIUM, SERUM 8.7 mg/dL (8.5-10.1); CREATININE 0.8 mg/dL (0.6-1.3); MAGNESIUM 1.5 mg/dL (1.8-2.4); PHOSPHORUS 1.5 mg/dL (2.5-4.9); POTASSIUM 3.3 mmol/L (3.5-5.1)
--- NOTE | 2021-08-10 07:15 | NUR ---
RN OPENING NOTE RECEIVED PATIENT SLEEPING IN BED, EASILY AWAKENED. A/O X2-3. ON 02 AT 2 LPM VIA NC. NO SOB NOTED. IN NO APPARENT DISTRESS. TELE READING SHOWS SB 50's. MONZON CATHETER IN PLACE, DRAINING YELLOW URINE. SAFETY MEASURES MAINTAINED. BED IN LOWEST POSITION, BRAKES LOCKED,. SIDE RAILS UP X2. CALL LIGHT WITHIN REACH. WILL CONTINUE PLAN OF CARE.
--- NOTE | 2021-08-10 07:57 | NUR ---
RN NOTE RECEIVED A CALL FROM THE LAB ([facility]) REGARDING A CRITICAL VALUE, TROPONIN 1.164. RASHAD CASTILLO NP, WAS MADE AWARE.
[2021-08-10 08:00] VITALS: BP 195/90
[2021-08-10] MEDS ORDERED: POTASSIUM CHLORIDE 20 MEQ TAB.PRT.SR PO ONE (08:30)
--- NOTE | 2021-08-10 09:17 | NUR ---
WOUND CARE CONSULT: PT PRESENTS WITH SLIGHTLY RAISED LESIONS TO RT BUTTOCK WHICH PT STATES WERE PRESENT ON ADMISSION. PT REPORTS TENDERNESS. DEFER TO PMD FOR LESIONS, UNKNOWN ETIOLOGY. RECOMMENDATIONS MADE FOR SKIN PROTECTION. DISCUSSED WITH NURSING STAFF. IN AGREEMENT WITH PLAN OF CARE. Addendum: 08/10/21 at 0918 by JAYDEN BOBO WNDNU Amended: Links added.
[2021-08-10] MEDS: ENOXAPARIN SODIUM 60 MG/0.6 ML DISP.SYRIN SQ SCH ×2 (09:20→16:05)
[2021-08-10] MEDS: METOPROLOL TARTRATE 25 MG TABLET PO SCH ×2 (09:21→21:09)
[2021-08-10] MEDS: PANTOPRAZOLE 40 MG TABLET.DR PO SCH (09:21)
[2021-08-10] MEDS: BLOOD SUGAR DIAGNOSTIC 1 EACH STRIP IN SCH ×4 (09:21→21:58)
[2021-08-10] MEDS: ASPIRIN EC 81 MG TABLET.DR PO SCH (09:21)
[2021-08-10] MEDS: INSULIN REGULAR, HUMAN 100 UNIT/ML 3 ML VIAL SQ PRN ×2 (09:22→11:45)
[2021-08-10] MEDS: LOSARTAN POTASSIUM 25 MG TABLET PO SCH (09:24)
[2021-08-10] MEDS: ONDANSETRON HCL/PF 4 MG/2 ML VIAL IVP PRN ×3 (09:27→21:09)
[2021-08-10] MEDS: CEFTRIAXONE 1 G in IV D5W 50 ML IV SCH (11:25)
[2021-08-10 12:00] VITALS: BP 160/100
[2021-08-10] MEDS: Magnesium 1GM/D5W 100ML PREMIX 100 ML IV SCH ×2 (13:50→15:05)
[2021-08-10] MEDS: POTASSIUM PHOSPHATE MM 7.5 MMOL in IV NS 0.9% 100 ML IV SCH ×2 (15:11→18:33)
[2021-08-10 16:00] VITALS: BP 167/88
--- NOTE | 2021-08-10 16:37 | NUR ---
RN NOTE SACRUM LESION NOTED. PHOTO HAS BEEN TAKEN AND DOCUMENTED.
--- NOTE | 2021-08-10 16:38 | NUR ---
RN NOTE ENDORSE TO NIRMALA MEDEROS, FOR [facility]
--- NOTE | 2021-08-10 19:20 | NUR ---
RN NOTES RECEIVED REPORT FROM MORNING RN PATIENT IN BED A/O X3 ABLE TO MAKE NEEDS KNOWN. NO SOB NO DISTRESS NOTED AT THIS TIME. WITH IV ACCESS AT R UA MIDLINE #18 PATENT FLUSHES WELL. WITH ONGOING IVF OF D5 1/2 NS @75 CC/HR TOLERATING WELL. WITH OXYGEN INHALATION AT 2LPM VIA NC TOLERATING WELL WITH SATING 99%. ALL SAFETY MEASURES IN PLACE AT ALL TIMES. HOB ELEVATED. CALL LIGHJT WITHIN REACG. BED ON LOWEST POSITION AND LOCKED. WILL CLOSELY MONITOR THE PATIENT.
--- NOTE | 2021-08-10 19:35 | NUR ---
RN CLOSING NOTE PT RESTING IN BED, NOT IN DISTRESS, NO COMPLAINTS OF PAIN. NO EPISODES OF N/V AT THIS TIME. PHYLLIS MIDLINE IN PLACE AND CONTINUES ON IV POTASSIUM PHOSPHATE, DRAINING AND TOLERATING WELL. ALL SAFETY MEASURES FOLLOWED. WILL ENDORSE TO NEXT SHIFT RN.
[2021-08-10 20:00] VITALS: BP 148/85
--- NOTE | 2021-08-10 21:58 | NUR ---
RN NOTES BS 122MG/DL NO COVERAGE. WILL CONTINUE TO MONITOR THE PATIENT. PATIENT IS COMFORTABLE IN BED NOT IN DISTRESS. WILL CONTINUE TO MONITOR.
[2021-08-11] VITALS: BP_SYST 119; BP_SYST 150; BP_DIAS 62; BP_DIAS 88
[2021-08-11 04:00] VITALS: BP 178/100
--- NOTE | 2021-08-11 04:10 | NUR ---
RN NOTES PATIENT BP 178/100 CHECK 3X BP STILL ELEVATED. VANI RUBBER BOOTS AND SHOES REPAIRER INFORMED WITH NEW ORDER OF CLONIDINE 0.1 MG PO PRN FOR SBP 160MM/HG. WILL CONTINUE TO MONITOR
[2021-08-11] MEDS: CLONIDINE HCL 0.1 MG TABLET PO PRN ×2 (04:39→20:49)
--- NOTE | 2021-08-11 04:50 | NUR ---
RN NOTES BP 165/79 O2 SAT 98%. NO PAIN NOT IN DISTRESS. WILL CONTINUE TO MONITOR
--- NOTE | 2021-08-11 06:37 | NUR ---
RN NOTES PATIENT IN BED ASLEEP. NO SOB NO DISTRESS NOTED. ALL DUE MEDS GIVEN ORDERED. FOR CT OF THE HEART WITH 3D IMAGES, CONSENT AT CHART. ALL NEEDS ATTENDED PROMPTLY. ALL SAFETY MEASURES IN PLACE AT ALL TIMES. CALL LIGHT WITHIN REACH. HOB ELEVATED. STILL ON OXYGEN INHALATION TOLERATING WELL SATING 99%. LATEST BP 147/82. WILL CONTINUE TO MONITOR ENDORSED.
[2021-08-11 06:45] LABS: BASOPHILS % (AUTO) 0.6 % (0.0-2.0); EOSINOPHILS % (AUTO) 1.6 % (0.0-6.0); HEMATOCRIT 25 % (33-45); HEMOGLOBIN 8.7 g/dL (11.5-14.8); LYMPHOCYTES # (AUTO) 1.6 K/uL (0.8-4.8); LYMPHOCYTES % (AUTO) 26.5 % (20.0-44.0); MEAN CORPUSCULAR HGB CONC 34 g/dl (31.0-36.0); MEAN CORPUSCULAR VOLUME 81 fL (82-100); MONOCYTES # (AUTO) 0.5 K/uL (0.1-1.30); MONOCYTES % (AUTO) 8.5 % (2.0-12.0); NEUTROPHILS # (AUTO) 3.7 K/uL (1.8-8.9); NEUTROPHILS % (AUTO) 62.8 % (43.0-81.0); PLATELET COUNT (AUTO) 126 K/uL (150-450); RED BLOOD CELL COUNT(AUTO) 3.12 MIL/uL (4.0-5.2); WHITE BLOOD COUNT (AUTO) 5.9 K/uL (4.3-11.0)
[2021-08-11 07:22] LABS: CALCIUM, SERUM 8.9 mg/dL (8.5-10.1); CREATININE 0.8 mg/dL (0.6-1.3); MAGNESIUM 1.9 mg/dL (1.8-2.4); PHOSPHORUS 2.5 mg/dL (2.5-4.9); POTASSIUM 3.6 mmol/L (3.5-5.1)
--- NOTE | 2021-08-11 07:30 | NUR ---
RN NOTE REPORT REC'D AT BEDSIDE. PT ASLEEP AROUSABLE.ORIENTED X4. IN NO ACUTE DISTRESS. NO SOB. ON 2 LPM O2 VIA NC.DENIES PAIN. IVF INFUSING WELL TO PHYLLIS MIDLINE. MONZON DRAINING CLEAR YELLOW URINE. SAFETY MEASURES OBSERVED. CALL LIGHT IN PLACE. WILL CONTINUE TO MONITOR.
[2021-08-11 08:00] VITALS: BP 144/79
[2021-08-11] MEDS: BLOOD SUGAR DIAGNOSTIC 1 EACH STRIP IN SCH ×4 (08:28→22:04)
[2021-08-11] MEDS: LOSARTAN POTASSIUM 25 MG TABLET PO SCH (08:29)
[2021-08-11] MEDS: PANTOPRAZOLE 40 MG TABLET.DR PO SCH (08:29)
[2021-08-11] MEDS: ASPIRIN EC 81 MG TABLET.DR PO SCH (08:29)
[2021-08-11] MEDS: ENOXAPARIN SODIUM 60 MG/0.6 ML DISP.SYRIN SQ SCH ×2 (08:31→17:17)
[2021-08-11] MEDS: METOPROLOL TARTRATE 25 MG TABLET PO SCH ×2 (09:02→20:52)
[2021-08-11] MEDS ORDERED: Aspirin Ec PO (09:23)
[2021-08-11] MEDS ORDERED: LOSA25TA27 PO (09:23)
[2021-08-11] MEDS ORDERED: METO25TA20 PO (09:23)
[2021-08-11] MEDS: GLUCERNA SHAKE 237 ML CAN PO SCH ×2 (09:28→17:17)
[2021-08-11] MEDS ORDERED: METOPROLOL TARTRATE INJ 5 MG/5 ML AMPUL ONE (09:38)
[2021-08-11] MEDS ORDERED: IOHEXOL-350 100 ML VIAL IV ONE (09:38)
[2021-08-11] MEDS ORDERED: NITROGLYCERIN 0.4 MG/TAB BOTTLE ONE (09:38)
[2021-08-11] MEDS ORDERED: CT SWABBABLE VALVE TRANS SET 1 EA INFUS.SET MC ONE (09:39)
[2021-08-11] MEDS ORDERED: IV NS 0.9% 250 ML IV ONE (09:41)
[2021-08-11] MEDS ORDERED: NITROGLYCERIN 0.4 MG/TAB BOTTLE SL ONE (10:00)
[2021-08-11] MEDS ORDERED: METOPROLOL TARTRATE INJ 5 MG/5 ML AMPUL IVP PRN (10:00)
[2021-08-11] MEDS: INSULIN REGULAR, HUMAN 100 UNIT/ML 3 ML VIAL SQ PRN ×4 (10:40→22:04)
--- NOTE | 2021-08-11 10:55 | NUR ---
RN NOTE SPOKE TO SW. JUNE RE: PTS REQUEST TO SPEAK TO HER ABOUT HOUSING.
[2021-08-11] MEDS: CEFTRIAXONE 1 G in IV D5W 50 ML IV SCH (11:18)
--- NOTE | 2021-08-11 12:59 | NUR ---
"SS Consult: SS Consult requested for homelessness. The pt. is a 66-year-old Black female patient that was admitted to the [facility] for hypoglycemia following a seizure per EMR. Per EMR, the pt. has Hx. of alcoholism, CVA, Seizures, and Diabetes mellitus. Upon SS consult, the pt. is A&O x 4 and makes appropriate eye contact. The pt. appears well-groomed and presents with a euthymic mood and affect. The pt. presents with a normal thought process and was cooperative with SW. SW explored pt.s living situation. Per the pt., she had been experiencing homelessness and states she has a bed outside of someones home. Pt. could not provide address. SW explored pt.s drug & ETOH use. Pt. states she consumes wine sometimes when her friends at [employer] provide it to her. Pt. states alcohol is not a problem for her. SW offered addiction resources and the pt. accepted them. SW explored pt.s mental health Hx. Per the pt., she has never been diagnosed with a mental illness and is not taking any psychotropic medications. Pt. denies current SI/HI and denies hallucinations. Pt. states she receives SSI & SSDI. Per pt. she uses wheelchair to ambulate. SW explored pt.s support system. Pt. states she has a son who lives up [place]. However, she cannot provide contact and states she does not want to move with him because its cold. Plan: Pt. signed homeless waiver & it was placed in the pt.s chart. SW provided homeless resources to pt. and she accepted them. Per CM notes, pt. has been referred and accepted at [facility]. Pt. is agreeable to SNF placement when medically cleared. Year-round shelters: [facility] [place] [address] [place], [place] [id number] ; [facility] [place] [address] [place] [address]; [facility] [id number] [facility]. [facility] [address] Winter Shelters: SPA 2 | [facility] Mendozavider: Freda Sparks Address: Confidential (call for location ) Population Served: Coed # of Beds: 57 SPA 4 | [facility] [place] Provider: [facility] Address: [address], [address] # of Beds: 49 Population Served: Coed SPA 6 | [facility] Michelle Brown Provider: [facility] Address: [address], [address] # of Beds: 49 Population Served: Coed [facility] Provider: Rivka Dumont AKD Address: [address] [facility] [address] # of Beds: 20 Population Served: Women SÁNCHEZ Facility Provider: [facility] Last Address: [address] [facility] [address] # of Beds: 30 Population Served: Women SPA 8 | [facility] Library Provider: Sukumar Address: [address] [facility] [address] # of Beds: 65 Population Served: Coed Hygiene: [facility]: [address] [facility] ; [facility] [address] [facility] ; [facility] [address] [facility] . Food Resources: [place] [facility] at [facility]- [address] [facility]; Meet Each Need with Dignity ([facility]) [address] [facility]; [facility] [address] [facility]; [facility] 8593 [facility]. Mental Health resources provided: [facility] [address] [place] [address] ; [facility] [address] [facility] [address], [place] [address] ; [facility] [address] [place] [address] ; [facility] [address] [place] [address] Healthcare Clinics: [facility] [address] [facility], [address] [place]. [place] ; [facility] [address] [facility] [facility] [address] [place] [address]; [facility] [address] [place] [address] [phone] Counseling--Outpatient [facility] [address], [place] [address] (Specializes in in-depth psychotherapy for emotional distress: anxiety, depression, interpersonal conflicts, life transitions, childhood abuse) [facility] [address] [place] [address] (Assist with solving problem marital difficulties, separation & divorce, aging parents, & grief, chronic & terminal illness) [facility] [address] [place] [address] (Deal with loss & grief, anxiety, marital difficulties) Homebound/Mental Health Services [address] [facility], [address] [place] [address] (Provide in-home mental services to people who are incapable of leaving their homes) [facility] for Needs of the Elderly Senior Service/Resource Center [address] [facility] [place] [address] [facility] [address] [facility] [place], [place] [phone] PSYCHIATRIC OUTPATIENT SERVICES [facility] Partial Hospitalization and Intensive Outpatient Program (Managed Care and [place] Only)[address] [facility]. [facility] [phone] [facility] Partial Hospitalization and Outpatient [id number] [facility] [address] [place], [place] [phone] [facility] [id number] [facility] [address] [place], [place] [phone] [facility] Partial Hospitalization and Outpatient [id number] [facility], [phone] Substance Abuse resources provided included: [facility] Substance Abuse Self-Helpline ([facility]) ; [facility] [address] [facility]. [place] [phone] ; [facility] Treatment [place] [address] [facility] [address] ; [facility] [address] [facility] [place] [address] ; [facility]ically [facility] [address] [facility] [address] ; [facility] [address] [facility] [phone] ; [facility] 909 [facility] [phone] ; [facility] Substance Abuse Helpline([facility] ; [facility] ; [facility]; [facility]; [facility] [place]; [facility]; [facility] [place]; [facility] [place]; [facility] [place]; [facility] [place]; Alcoholics Anonymous -SFV; Em-Zuky-Sezjrxk ; Marijuana Anonymous -SFV; Narcotics Anonymous www.na.org;"
[2021-08-11 13:09] VITALS: BP 150/89
[2021-08-11 16:00] VITALS: BP 153/75
[2021-08-11] MEDS: MORPHINE SULFATE INJ 2 MG/ML DISP.SYRIN IV PRN (17:27)
--- NOTE | 2021-08-11 18:40 | NUR ---
RN NOTE PT IS AWAKE . NO. SOB. VERBALIZED FEELING BETTER AFTER THE MORPHINE. ON O2 AT 2 LPM VIA NC SATURATING WELL. IV TO PHYLLIS MIDLINE IS NOW ON SL, PATENT AND INTACT. PT C/O SORE THROAT. CEPACOL ORDERED. MONZON DRAINING YELLOW URINE OUTPUT. SAFETY MEASURES OBSERVED. CALL LIGHT WITHIN REACH. WILL ENDORSE CARE TO NOC RN.
[2021-08-11] MEDS: MENTHOL/CETYLPYRD (CEPACOL) 1 LOZ LOZENGE PO PRN (19:47)
[2021-08-11 20:00] VITALS: BP 162/83
--- NOTE | 2021-08-11 20:52 | NUR ---
RN NOTES, METOPROLOL NOT ADMINISTERED DUE TO LOW HR 55, INSTEAD ADMINISTERED CLONIDINE INSTEAD, WILL CONT TO MONITOR.
--- NOTE | 2021-08-11 22:00 | NUR ---
RN NOTES, REASSESSMENT OF BLOOD PRESSURE 135/78, 58
[2021-08-12] VITALS: BP 119/62
[2021-08-12 04:00] VITALS: BP 129/59
[2021-08-12] MEDS: MORPHINE SULFATE INJ 2 MG/ML DISP.SYRIN IV PRN ×3 (04:17→19:56)
[2021-08-12] MEDS: MENTHOL/CETYLPYRD (CEPACOL) 1 LOZ LOZENGE PO PRN ×3 (06:04→17:28)
--- NOTE | 2021-08-12 06:30 | NUR ---
RN NOTES, PATIENT IN BED, ASLEEP AT THIS TIME, AROUSES T VERBAL STIMULI, A/O X4 NO SOB OR DISTRESS NOTED THROUGHOUT THE NIGHT, WITH EPISODE OF NOSE BLEED LAST NIGHT, VITALS SIGNS STABLE, AFTER THAT NO SIGNIFICANT CHANGE IN CONDITION, SAFETY MEASURES OBSERVED, WILL ENDORSE CONTINUITY OF CARE TO ONCOMING NURSE.
[2021-08-12] MEDS: PANTOPRAZOLE 40 MG TABLET.DR PO SCH (07:53)
[2021-08-12] MEDS: BLOOD SUGAR DIAGNOSTIC 1 EACH STRIP IN SCH ×4 (07:53→21:59)
[2021-08-12 08:00] VITALS: BP 131/72
[2021-08-12] MEDS: GLUCERNA SHAKE 237 ML CAN PO SCH ×2 (08:00→17:00)
--- NOTE | 2021-08-12 08:00 | NUR ---
RN note Patient received AO x 4, able to responds all stimuli. C/o sore throat, and given Cepacol. Skin is warm to touch, keep clean/dry, patient able to reposition self. Respiratory even and unlabored on room air, no SOB observed. Call light within reach, kept lower bed position for safety. Will continue to monitor.
[2021-08-12] MEDS: ENOXAPARIN SODIUM 60 MG/0.6 ML DISP.SYRIN SQ SCH ×2 (09:00→17:00)
[2021-08-12] MEDS: ASPIRIN EC 81 MG TABLET.DR PO SCH (09:00)
[2021-08-12] MEDS: METOPROLOL TARTRATE 25 MG TABLET PO SCH ×2 (09:00→22:00)
[2021-08-12] MEDS: LOSARTAN POTASSIUM 25 MG TABLET PO SCH (09:00)
--- NOTE | 2021-08-12 09:22 | NUR ---
Patient refused Lovenox due to nose bleed last night, MD made aware.
[2021-08-12] MEDS: CEFTRIAXONE 1 G in IV D5W 50 ML IV SCH (10:37)
[2021-08-12 12:00] VITALS: BP_SYST 72
[2021-08-12 16:00] VITALS: BP 150/70
--- NOTE | 2021-08-12 18:30 | NUR ---
RN Closing Note Patient in bed, resting, denies pain or discomfort. Patient stated "Where is my cell phone? I lost my phone." Checked belongings, there's no documentation about cell phone. Skin is warm to touch, keep clean/dry, patient refused sacral lesion care. Respiratory even and unlabored on room air. Call light within reach, all needs met and endorsed retail shift manager.
--- NOTE | 2021-08-12 19:49 | NUR ---
RN NOTE RECEIVED PATIENT IN BED, AWAKE, ALERT, AND VERBALLY RESPONSIVE. ABLE TO MAKE NEEDS KNOWN. BREATHING EVEN AND UNLABORED. NO SOB NOTED. NO COUGH/CONGESTION. TOLERATING ROOM AIR, NO RESP. DISTRESS AT THIS TIME. PATIENT ON TELE-MONITORING, SR AT 63 BPM. SKIN WARM AND DRY. NO BLEEDING AT THIS TIME. NOTED WITH PHYLLIS MIDLINE, PATENT, ABLE TO FLUSH, NO INFILTRATION. NOTED WITH MONZON CATHETER DRAINING YELLOW URINE. INTACT, NO BLEEDING NOTED. BED LOW, IN LOCKED POSITION, CALL LIGHT WITHIN REACH.
--- NOTE | 2021-08-12 19:56 | NUR ---
RN NOTE PATIENT COMPLAINING OF PAIN. PATIENT STATES PAIN IS EVERYWHERE. ASSISTED WITH TURNING AND REPOSITIONING WITH NO RELIEF. ADMINISTERED MORPHINE 1 MG/O.5 ML PER MD ORDER FOR GENERALIZED BODY PAIN. VITAL SIGNS WNL AT THIS TIME. RESPIRATION EVEN AND UNLABORED. CALL LIGHT WITHIN REACH. WILL CONTINUE TO MONITOR.
[2021-08-12 20:00] VITALS: BP 155/69
[2021-08-13] VITALS: BP 144/67
[2021-08-13 04:00] VITALS: BP 148/81
[2021-08-13] MEDS: MORPHINE SULFATE INJ 2 MG/ML DISP.SYRIN IV PRN ×3 (05:01→16:53)
--- NOTE | 2021-08-13 05:01 | NUR ---
RN NOTE PATIENT COMPLAINING OF GENERALIZED PAIN. ASSISTED WITH TURNING AND REPOSITIONING WITH NO RELIEF. ADMINISTERED MORPHINE 1 MG/O.5 ML PER MD ORDER FOR GENERALIZED BODY PAIN. CALL LIGHT WITHIN REACH. WILL CONTINUE TO MONITOR.
--- NOTE | 2021-08-13 07:30 | NUR ---
GRIP ASSEMBLER OPENING NOTES RECEIVED PATIENT ON BED, AWAKE AND A/O X4. ON ROOM AIR BREATHING EVENLY AND UNLABORED. NO SOB NOTED. NOT IN DISTRESS. WITH COMPLAINTS OF PAIN AT THE SCALE OF 8/10. COMFORT MEASURES PROVIDED. WITH IV ACCESS AT RIGHT UPPER ARM MIDLINE, SALINE LOCKED, INTACT AND PATENT. SAFETY MEASURES IN PLACED. CALL LIGHT AND BEDSIDE TABLE WITHIN REACH. BED ON LOWEST AND LOCKED POSITION, SIDE RAILS UP X2. WILL CONTINUE TO MONITOR.
--- NOTE | 2021-08-13 07:30 | NUR ---
SHIPPING COORDINATOR NOTE ON TELE MONITOR CURRENTLY READING SINUS BRADYCARDIA AT 58BPM.
[2021-08-13] MEDS: BLOOD SUGAR DIAGNOSTIC 1 EACH STRIP IN SCH ×4 (07:32→22:07)
[2021-08-13 08:00] VITALS: BP 159/75
[2021-08-13] MEDS: METOPROLOL TARTRATE 25 MG TABLET PO SCH ×2 (09:00→20:50)
[2021-08-13] MEDS: ENOXAPARIN SODIUM 60 MG/0.6 ML DISP.SYRIN SQ SCH ×3 (09:00→18:14)
[2021-08-13] MEDS: ASPIRIN EC 81 MG TABLET.DR PO SCH (09:23)
[2021-08-13] MEDS: PANTOPRAZOLE 40 MG TABLET.DR PO SCH (09:23)
[2021-08-13] MEDS: LOSARTAN POTASSIUM 25 MG TABLET PO SCH (09:23)
[2021-08-13] MEDS: GLUCERNA SHAKE 237 ML CAN PO SCH ×2 (09:23→16:49)
[2021-08-13] MEDS: MENTHOL/CETYLPYRD (CEPACOL) 1 LOZ LOZENGE PO PRN ×2 (09:30→18:57)
[2021-08-13] MEDS: CEFTRIAXONE 1 G in IV D5W 50 ML IV SCH (10:23)
[2021-08-13 12:00] VITALS: BP 153/84
[2021-08-13 16:00] VITALS: BP 157/74
--- NOTE | 2021-08-13 18:14 | NUR ---
RN NOTE ABLE TO ENCOURAGE THE PATIENT TO HAVE LOVENOX INJECTION SQ.
--- NOTE | 2021-08-13 18:25 | NUR ---
STEELWORKER CLOSING NOTES PATIENT RESTING ON BED AND A/O X4. ON ROOM AIR BREATHING EVENLY AND UNLABORED. NO SOB NOTED. NOT IN DISTRESS. WITH NO COMPLAINTS OF PAIN OR DISCOMFORT AT THIS TIME. ON TELE MONITOR CURRENTLY READING SINUS RHYTHM AT 62BPM. WITH IV ACCESS AT RIGHT UPPER ARM MIDLINE, SALINE LOCKED, INTACT AND PATENT. DUE MEDS GIVEN. PATIENT REFUSED HER BID LOVENOX MEDICATIONS, MD MADE AWARE. SAFETY MEASURES IN PLACED. CALL LIGHT AND BEDSIDE TABLE WITHIN REACH. BED ON LOWEST AND LOCKED POSITION, SIDE RAILS UP X2. WILL ENDORSE TO NEXT SHIFT FOR JASPER.
--- NOTE | 2021-08-13 19:30 | NUR ---
SUB ASSEMBLY TEAM WORKER OPENING NOTES PATIENT AWAKE IN BED, ALERT/ORIENTED X 4, PT ABLE TO MAKE NEEDS KNOWN. PT STABLE ON RA, NO S/S OF DISTRESS OR SOB NOTED, BREATHING EVEN AND UNLABORED. PT ON EXTERNAL COMPUTER NETWORK SUPPORT SPECIALIST READING SINUS RHYTHM, HR: 65. PT DENIES PAIN AT THIS TIME. MONZON CATHETER NOTED. IV ACCESS ON PHYLLIS MIDLINE INTACT AND SALINE LOCKED. SAFETY MEASURES IN PLACE: CALL LIGHT WITHIN REACH, SIDE RAILS UP X 2, BED LOCKED IN LOW POSITION, BED ALARM ON. WILL CONTINUE TO MONITOR PATIENT
[2021-08-13 20:00] VITALS: BP 162/81
[2021-08-14] VITALS: BP 137/74
[2021-08-14 04:00] VITALS: BP 162/68
--- NOTE | 2021-08-14 07:32 | NUR ---
MASONRY TEACHER CLOSING NOTES PATIENT AWAKE IN BED, ALERT/ORIENTED X 4, PT ABLE TO MAKE NEEDS KNOWN. PT STABLE ON RA, NO S/S OF DISTRESS OR SOB NOTED, BREATHING EVEN AND UNLABORED. PT ON EXTERNAL POISER BALANCE READING SINUS RHYTHM. MONZON CATHETER IN PLACE. IV ACCESS ON PHYLLIS MIDLINE INTACT AND SALINE LOCKED. MEDICATIONS GIVEN ORDERED, PT NEEDS MET THROUGHOUT SHIFT. SAFETY MEASURES IN PLACE: CALL LIGHT WITHIN REACH, SIDE RAILS UP X 2, BED LOCKED IN LOW POSITION, BED ALARM ON. ENDORSED TO DAY SHIFT NURSE FOR CONTINUITY OF CARE
--- NOTE | 2021-08-14 07:56 | NUR ---
BRIDGE WORKER APPRENTICEEXPRESSIVE ART THERAPIST NOTES RECEIVED PT FROM [facility] AWAKE IN BED, ALERT/ORIENTED X 4, PT ABLE TO MAKE NEEDS KNOWN. PT STABLE ON RA, NO S/S OF DISTRESS OR SOB NOTED, BREATHING EVEN AND UNLABORED. PT WITH EXTERNAL SENIOR HYDROGEOLOGIST READING SINUS RHYTHM IN 70'S. NO C/O PAIN AT THIS TIME. IV ACCESS ON PHYLLIS MIDLINE INTACT AND SALINE LOCKED. SAFETY MEASURES IN PLACE: CALL LIGHT WITHIN REACH, SIDE RAILS UP X 2, BED LOCKED IN LOW POSITION, BED ALARM ON. WILL CONTINUE TO MONITOR PATIENT
[2021-08-14] MEDS: BLOOD SUGAR DIAGNOSTIC 1 EACH STRIP IN SCH ×4 (08:12→22:12)
[2021-08-14] MEDS: GLUCERNA SHAKE 237 ML CAN PO SCH ×2 (08:12→16:49)
[2021-08-14] MEDS: PANTOPRAZOLE 40 MG TABLET.DR PO SCH (08:12)
[2021-08-14] MEDS: ASPIRIN EC 81 MG TABLET.DR PO SCH (08:13)
[2021-08-14] MEDS: METOPROLOL TARTRATE 25 MG TABLET PO SCH ×2 (08:59→21:40)
[2021-08-14] MEDS: LOSARTAN POTASSIUM 25 MG TABLET PO SCH (08:59)
[2021-08-14] MEDS: ENOXAPARIN SODIUM 60 MG/0.6 ML DISP.SYRIN SQ SCH ×2 (09:00→16:28)
[2021-08-14] MEDS: MORPHINE SULFATE INJ 2 MG/ML DISP.SYRIN IV PRN ×2 (09:08→21:41)
--- NOTE | 2021-08-14 15:56 | NUR ---
STEREO MAP PLOTTER OPERATOR NOTE REMOVED MONZON CATHETER PER DR. CASTILLO ORDER. WILL INFORM IF PT HAS NOT URINATED WITHIN 6 HOURS.
--- NOTE | 2021-08-14 18:59 | NUR ---
ADJUNCT INSTRUCTOR CLOSING NOTE PT IS ASLEEP IN BED, RESTING COMFORTABLY. ALERT/ORIENTED X 4, PT ABLE TO MAKE NEEDS KNOWN. PT STABLE ON RA, NO S/S OF DISTRESS OR SOB NOTED, BREATHING EVEN AND UNLABORED. PT WITH EXTERNAL AMUSEMENT RIDE INSPECTOR READING SINUS RHYTHM IN 70'S. NO C/O PAIN AT THIS TIME. IV ACCESS ON PHYLLIS MIDLINE INTACT WITH NS 0.9% RUNNING AT 40MLS.HR. SAFETY MEASURES MAINTAINED: CALL LIGHT WITHIN REACH, SIDE RAILS UP X 2, BED LOCKED IN LOW POSITION, BED ALARM ON. WILL ENDORSE CONTINUITY OF CARE TO ONCOMING SHIFT.
--- NOTE | 2021-08-14 19:30 | NUR ---
LABORATORY ENGINEER NOTE RECEIVED PATIENT IN BED WATCHING TV. A/OX4. NO S/S OF APPARENT DISTRESS ON ROOM AIR. PATIENT C/O OF PAIN BUT TOLERABLE AT THE MOMENT AND DOES NOT WANT MEDICATION FOR NOW. TELE MONITOR READING SR 71. NO FLUIDS RUNNING AT THIS TIME. NEEDS ATTENDED FOR NOW. SAFETY IN PLACE. WILL CONTINUE WITH PLAN OF CARE.
[2021-08-14 20:00] VITALS: BP 116/47
--- NOTE | 2021-08-14 21:40 | NUR ---
COPY CAMERA OPERATOR NOTE PATIENT'S BP 116/47. PER CHARGE IT'S OK TO GIVE LOPRESSOR SINCE HR- 67. GIVEN LOPRESSOR 25MG.
[2021-08-14] MEDS: INSULIN REGULAR, HUMAN 100 UNIT/ML 3 ML VIAL SQ PRN (22:13)
--- NOTE | 2021-08-14 22:13 | NUR ---
television repairman note patient blood sugar 112. no coverage needed.
[2021-08-15] VITALS: BP 128/63
[2021-08-15 05:00] VITALS: BP 128/54
[2021-08-15] MEDS: BLOOD SUGAR DIAGNOSTIC 1 EACH STRIP IN SCH ×4 (06:54→22:07)
[2021-08-15] MEDS: INSULIN REGULAR, HUMAN 100 UNIT/ML 3 ML VIAL SQ PRN ×4 (07:02→22:08)
--- NOTE | 2021-08-15 07:03 | NUR ---
radiotelegraph operator servicer note patient blood sugar 102. no coverage needed.
--- NOTE | 2021-08-15 07:17 | NUR ---
ASSISTANT ATTORNEY GENERAL OPENING NOTES RECEIVED PATIENT AWAKE IN BED IN NO ACUTE SIGN SOF DISTRESS. A/OX4. ABLE TO MAKE NEEDS KNOWN, DENIES PAIN OR ANY DISCOMFORTS AT THIS TIME. ON ROOM AIR, BREATHING EVEN AND UNLABORED. ON TELE-MONITOR WITH CURRENT READING OF SB 54, NO C/O CARDIAC DISTRESS VOICED AT THIS TIME. PHYLLIS MIDLINE INTACT, PATENT AND FLUSHES WELL. SAFETY MEASURES IN PLACE: BED IN LOWEST LOCKED POSITION WITH SR UPX2. CALL LIGHT W/I EASY REACH OF PT. WILL CONTINUE TO MONITOR PT ACCORDINGLY.
--- NOTE | 2021-08-15 07:25 | NUR ---
receptionist/telephone operator note report given to NIRMALA Wong for continuity of care.
[2021-08-15] MEDS: PANTOPRAZOLE 40 MG TABLET.DR PO SCH (07:42)
[2021-08-15] MEDS: ASPIRIN EC 81 MG TABLET.DR PO SCH (08:47)
[2021-08-15] MEDS: LOSARTAN POTASSIUM 25 MG TABLET PO SCH (08:48)
[2021-08-15] MEDS: METOPROLOL TARTRATE 25 MG TABLET PO SCH ×2 (08:48→21:04)
[2021-08-15] MEDS: ENOXAPARIN SODIUM 60 MG/0.6 ML DISP.SYRIN SQ SCH ×2 (08:49→16:29)
[2021-08-15] MEDS: GLUCERNA SHAKE 237 ML CAN PO SCH ×2 (08:50→17:01)
[2021-08-15] MEDS: MORPHINE SULFATE INJ 2 MG/ML DISP.SYRIN IV PRN ×2 (11:38→21:05)
--- NOTE | 2021-08-15 11:43 | NUR ---
RN NOTES PT C/O GENERALIZED PAIN, 8/10 SCALE. PRN MORPHINE 1MG/0.5ML IVP ADMINISTERED AT 1138. WILL CONTINUE TO MONITOR AND REASSESS PT.
[2021-08-15 12:00] VITALS: BP 100/45
[2021-08-15 16:16] VITALS: BP 120/65
--- NOTE | 2021-08-15 18:33 | NUR ---
STRIPPER PRELIMINARY CLOSING NOTES PATIENT IN BED AWAKE AND WATCHING TV AT THIS TIME. A/O X-3-4. ABLE TO MAKE NEEDS KNOWN, NOTED WITH SOME PERIOD OF CONFUSION, RE-ORIENTED AND REDIRECTED PRN. ON ROOM AIR, BREATHING EVEN AND UNLABORED, NO ACUTE RESPIRATORY DISTRESS NOTED DURING THE DAY. ON TELE-MONITOR WITH CURRENT READING OF NSR, HR 68, NO C/O CARDIAC DISTRESS VOICED DURING SHIFT. PHYLLIS MIDLINE INTACT, PATENT AND FLUSHES WELL. ALL NEEDS AND CARE ATTENDED WELL. SAFETY MEASURES KEPT IN PLACE: BED IN LOWEST LOCKED POSITION WITH SR UPX2. CALL LIGHT W/I EASY REACH OF PT. WILL ENDORSE JASPER TO NUTRITION MANAGER NURSE.
--- NOTE | 2021-08-15 19:18 | NUR ---
SERVICES ADVISOR OPENING NOTES PATIENT IN BED AWAKE AND WATCHING TV AT THIS TIME. A/O X-3-4. ABLE TO MAKE NEEDS KNOWN, NOTED WITH SOME PERIOD OF CONFUSION, RE-ORIENTED AND REDIRECTED PRN. ON ROOM AIR, BREATHING EVEN AND UNLABORED, NO ACUTE RESPIRATORY DISTRESS NOTED. ON TELE-MONITOR WITH CURRENT READING OF NSR, HR 68, NO C/O CARDIAC DISTRESS VOICED AT THIS TIME. PHYLLIS MIDLINE INTACT, PATENT AND FLUSHES WELL. ALL NEEDS AND CARE ATTENDED WELL. SAFETY MEASURES KEPT IN PLACE: BED IN LOWEST LOCKED POSITION WITH SR UPX2. CALL LIGHT W/I EASY REACH OF PT. WILL CONTINUE TO MONITOR.
[2021-08-15 20:00] VITALS: BP 121/61
[2021-08-16] VITALS: BP 99/62
[2021-08-16 04:00] VITALS: BP 126/60
--- NOTE | 2021-08-16 06:30 | NUR ---
DESIGN CHECKER OPENING NOTES PATIENT IN BED ASLEEP AT THIS TIME. A/O X-3-4. ABLE TO MAKE NEEDS KNOWN, NOTED WITH SOME PERIOD OF CONFUSION, RE-ORIENTED AND REDIRECTED PRN. ON ROOM AIR, BREATHING EVEN AND UNLABORED, NO ACUTE RESPIRATORY DISTRESS NOTED. ON TELE-MONITOR WITH CURRENT READING OF NSR, HR 68, NO C/O CARDIAC DISTRESS VOICED AT THIS TIME. PHYLLIS MIDLINE INTACT, PATENT AND FLUSHES WELL. ALL NEEDS AND CARE ATTENDED WELL. SAFETY MEASURES KEPT IN PLACE: BED IN LOWEST LOCKED POSITION WITH SR UPX2. CALL LIGHT W/I EASY REACH OF PT. PT REFUSED LABS THIS MORNING X3 RISK BENEFITS EXPLAINED X3. WILL ENDORSE CARE TO DAY SHIFT NURSE. Addendum: 08/16/21 at 0633 by TAMMY RPICE RN CORRECTION PT DID NOT REFUSE LABS
[2021-08-16] MEDS: BLOOD SUGAR DIAGNOSTIC 1 EACH STRIP IN SCH ×4 (07:30→22:07)
[2021-08-16] MEDS: PANTOPRAZOLE 40 MG TABLET.DR PO SCH (07:30)
--- NOTE | 2021-08-16 07:33 | NUR ---
RN OPENING NOTE PT IN BED ASLEEP. ON RA WITH NO SOB OR RESPIRATORY DISTRESS PRESENT. A/O X4 AND BERMUDIAN SPEAKING. ON DEBONE SUPERVISOR. ON BEDREST WITH DIAPER PRESENT. MIDLINE PRESENT ON PHYLLIS AND SALINE LOCKED. FLUSHES WELL. LABS AND ORDERS REVIEWED. SAFETY MEASURES IN PLACE. SIDE RAILS RAISED. BED LOWERED. CALL LIGHT WITHIN REACH. WILL CONTINUE TO MONITOR.
[2021-08-16 08:00] VITALS: BP 119/65
[2021-08-16] MEDS: GLUCERNA SHAKE 237 ML CAN PO SCH ×2 (08:56→18:11)
[2021-08-16] MEDS: ASPIRIN EC 81 MG TABLET.DR PO SCH (08:56)
[2021-08-16] MEDS: LOSARTAN POTASSIUM 25 MG TABLET PO SCH (08:57)
[2021-08-16] MEDS: ENOXAPARIN SODIUM 60 MG/0.6 ML DISP.SYRIN SQ SCH ×2 (08:58→16:10)
[2021-08-16] MEDS: METOPROLOL TARTRATE 25 MG TABLET PO SCH ×2 (08:58→21:00)
[2021-08-16] MEDS: MORPHINE SULFATE INJ 2 MG/ML DISP.SYRIN IV PRN ×3 (09:15→21:36)
[2021-08-16 09:24] LABS: BASOPHILS % (AUTO) 0.4 % (0.0-2.0); EOSINOPHILS % (AUTO) 0.3 % (0.0-6.0); HEMATOCRIT 24 % (33-45); LYMPHOCYTES # (AUTO) 2.1 K/uL (0.8-4.8); LYMPHOCYTES % (AUTO) 26.4 % (20.0-44.0); MEAN CORPUSCULAR HGB CONC 34 g/dl (31.0-36.0); MEAN CORPUSCULAR VOLUME 81 fL (82-100); MONOCYTES # (AUTO) 1.3 K/uL (0.1-1.30); MONOCYTES % (AUTO) 15.7 % (2.0-12.0); NEUTROPHILS # (AUTO) 4.6 K/uL (1.8-8.9); NEUTROPHILS % (AUTO) 57.2 % (43.0-81.0); PLATELET COUNT (AUTO) 329 K/uL (150-450); RED BLOOD CELL COUNT(AUTO) 2.88 MIL/uL (4.0-5.2)
[2021-08-16 10:03] LABS: CALCIUM, SERUM 9.2 mg/dL (8.5-10.1); POTASSIUM 3.1 mmol/L (3.5-5.1)
[2021-08-16] MEDS ORDERED: POTASSIUM CHLORIDE 20 MEQ TAB.PRT.SR PO ONE (11:00)
[2021-08-16 16:00] VITALS: BP 99/57
--- NOTE | 2021-08-16 16:10 | NUR ---
RN NOTE CARLENE HELD PER . PT FOR CARDIAC CATH TMR
[2021-08-16 18:46] LABS: BAND % (MANUAL) 1 % (0.0-5.0); LYMPHOCYTES % (MANUAL) 23 % (16-48); MONOCYTES % (MANUAL) 17 % (0-11.0); NEUTROPHILS % (MANUAL) 59 (42-76)
--- NOTE | 2021-08-16 19:21 | NUR ---
RN CLOSING NOTE PT IN BED ASLEEP. ON RA WITH NO SOB OR RESPIRATORY DISTRESS PRESENT. A/O X4 AND FINNISH SPEAKING. ON DRAG SEINER. ON BEDREST WITH DIAPER PRESENT. MIDLINE PRESENT ON PHYLLIS AND SALINE LOCKED. FLUSHES WELL. LABS AND ORDERS REVIEWED. SAFETY MEASURES IN PLACE. SIDE RAILS RAISED. BED LOWERED. CALL LIGHT WITHIN REACH. WILL GIVE REPORT TO NIGHT NURSE FOR JASPER
--- NOTE | 2021-08-16 19:33 | NUR ---
REPLENISHMENT ASSOCIATE OPENING NOTE PT IN BED ASLEEP. ON RA WITH NO SOB OR RESPIRATORY DISTRESS PRESENT. A/O X4 AND SINHALA SPEAKING. ON SENIOR PATIENT ACCOUNT REPRESENTATIVE. ON BEDREST WITH DIAPER PRESENT. MIDLINE PRESENT ON PHYLLIS AND SALINE LOCKED. FLUSHES WELL. SAFETY MEASURES IN PLACE. SIDE RAILS RAISED. BED LOWERED. CALL LIGHT WITHIN REACH. PT TO BE NPO AFTER MIDNIGHT FOR CARDIAC CATH TOMORROW AT NOON. WILL CONTAIN CONSENT.WILL CONTINUE TO MONITOR.
[2021-08-16 20:00] VITALS: BP 104/57
--- NOTE | 2021-08-16 20:30 | NUR ---
telehealth coordinator notes prn morphine given for pain tolerated well. t reminded that she is to be npo after midnight consent obtained for cardiac cath. will continue to monitor.
[2021-08-17] VITALS: BP 134/56
[2021-08-17 04:00] VITALS: BP 106/53
[2021-08-17] MEDS: MORPHINE SULFATE INJ 2 MG/ML DISP.SYRIN IV PRN ×3 (06:19→20:33)
--- NOTE | 2021-08-17 06:40 | NUR ---
OCEANIC SCIENCES PROFESSOR CLOSING NOTE PT IN BED ASLEEP. ON RA WITH NO SOB OR RESPIRATORY DISTRESS PRESENT. A/O X4 AND OCCITAN SPEAKING. ON SECRETARY TO THE VICE PRESIDENT. ON BEDREST WITH DIAPER PRESENT. MIDLINE PRESENT ON PHYLLIS AND SALINE LOCKED. FLUSHES WELL. SAFETY MEASURES IN PLACE. SIDE RAILS RAISED. BED LOWERED. CALL LIGHT WITHIN REACH. PT NPO SINCE MIDNIGHT FOR CARDIAC CATH TODAY AT NOON. CONSENT SIGNED. WILL ENDORSE CARE TO DAY SHIFT NURSE.
[2021-08-17] MEDS: BLOOD SUGAR DIAGNOSTIC 1 EACH STRIP IN SCH ×4 (06:51→22:05)
--- NOTE | 2021-08-17 07:30 | NUR ---
DIRECTOR SHIP OPENING NOTE RECEIVED PATIENT AWAKE IN BED. NO SOB OR RESPIRATORY DISTRESS PRESENT. A/O X4 AND VIETNAMESE SPEAKING. ON WEBMETHODS CONSULTANT. SR= 60 . MIDLINE PRESENT ON PHYLLIS AND SALINE LOCKED. FLUSHES WELL. SAFETY MEASURES IN PLACE. SIDE RAILS UP X2. BED IN THE LOWEST POSITION AND LOCKED. CALL LIGHT WITHIN REACH. PATIENT WILL GO FOR CARDIAC CATHETERIZATION TODAY. WILL HOLD LEVONOX. WILL CONTINUE TO MONITOR.
[2021-08-17] MEDS: PANTOPRAZOLE 40 MG TABLET.DR PO SCH (07:52)
[2021-08-17 08:00] VITALS: BP 127/67
[2021-08-17] MEDS: GLUCERNA SHAKE 237 ML CAN PO SCH ×2 (08:00→17:46)
[2021-08-17] MEDS: METOPROLOL TARTRATE 25 MG TABLET PO SCH ×2 (08:58→23:25)
[2021-08-17] MEDS: LOSARTAN POTASSIUM 25 MG TABLET PO SCH (08:59)
[2021-08-17] MEDS: ENOXAPARIN SODIUM 60 MG/0.6 ML DISP.SYRIN SQ SCH (09:00)
[2021-08-17] MEDS: ASPIRIN EC 81 MG TABLET.DR PO SCH (09:00)
--- NOTE | 2021-08-17 09:42 | NUR ---
RN NOTES HELD ASPIRIN, LEVONOX AND GLUCERNA. PATIENT IS SCHEDULED FOR CARDIAC CATHETERIZATION PROCEDURE.
[2021-08-17] MEDS ORDERED: IV NS 0.9% 1,000 ML ONE (10:50)
[2021-08-17] MEDS ORDERED: IV SET PRIMARY PUMP SET 1 EA INFUS.SET MC ONE (10:50)
[2021-08-17] MEDS ORDERED: LIDOCAINE HCL/MPF 1% 30 ML VIAL IJ ONE (10:51)
[2021-08-17] MEDS ORDERED: IODIXANOL 150 ML IV ONE (10:51)
[2021-08-17] MEDS ORDERED: NITROGLYCERIN IN 5 % DEXTROSE 250 ML IV ONE (10:51)
[2021-08-17] MEDS ORDERED: MIDAZOLAM HCL 2 MG/2ML VIAL ONE (11:10)
[2021-08-17] MEDS ORDERED: FENTANYL PF 100MCG/2ML AMPUL ONE ×2 (11:10→11:23)
[2021-08-17] MEDS ORDERED: HEPARIN SODIUM, PORCINE 1,000 UNIT/ML VIAL ONE (11:33)
[2021-08-17] MEDS ORDERED: HEPARIN SODIUM, PORCINE 5000 UNITS/1 ML VIAL ONE (11:33)
[2021-08-17 16:00] VITALS: BP 118/56
--- NOTE | 2021-08-17 19:30 | NUR ---
GROOVING LATHE TENDER CLOSING NOTES PATIENT AWAKE IN BED. NO SOB OR RESPIRATORY DISTRESS PRESENT. A/O X4 AND CROATIAN SPEAKING. ON BONING ROOM WORKER . MIDLINE PRESENT ON PHYLLIS AND SALINE LOCKED. FLUSHES WELL.DUE MEDS GIVEN ORDERED. PER DR. ARTEAGA THE ORDER FOR LOVENOX DC. NO BLEEDING NOTED AFTER CARDIAC CATHETERIZATION ON THE RIGHT RADIAL ACCESS. COVERED WITH DRY DRESSING. SAFETY MEASURES IN PLACE. SIDE RAILS UP X2. BED IN THE LOWEST POSITION AND LOCKED. CALL LIGHT WITHIN REACH. WILL ENDORSE FOR JASPER TO INCOMING NURSE .
--- NOTE | 2021-08-17 20:00 | NUR ---
SAILING OFFICER NOTES PT REFUSING TO HAVE VS TAKEN. EXPLAINED TO PT IMPORTANCE OF VS IN HER POC BUT PT STILL REFUSED. WILL CONTINUE TO MONITOR.
--- NOTE | 2021-08-17 20:00 | NUR ---
EVENT DECORATOR NOTES AWAKE & RESPONSIVE. NOT IN ANY DISTRESS. NO SOB NOTED. DENIES ANY PAIN OR DISCOMFORT AT THIS TIME. ON TELE SR @ 83 WITH IV-HL PATENT & INTACT. MONITORED ACCORDINGLY. CALL LIGHT WITHIN REACH. BED IN LOWEST POSITION. SR UP X 2 FOR SAFETY. WILL ENDORSE TO NEXT SHIFT. Addendum: 08/18/21 at 0637 by TY TELLES RN ON TELE SB @ 51 NOT SR @ 83 Addendum: 08/18/21 at 0644 by TY TELLES RN DISREGARD NOTES. INCORRECT TIME ENTERED.
[2021-08-17] MEDS: ONDANSETRON HCL/PF 4 MG/2 ML VIAL IVP PRN (20:33)
--- NOTE | 2021-08-18 | NUR ---
SECURITY COMPLIANCE SPECIALIST NOTES PT STILL REFUSING TO HAVE VS TAKEN. EXPLAINED TO PT IMPORTANCE OF VS IN HER POC BUT PT STILL REFUSED. WANTS TO GO TO SLEEP PER PT. WILL CONTINUE TO MONITOR.
[2021-08-18 03:00] VITALS: BP 133/66
[2021-08-18] MEDS: ONDANSETRON HCL/PF 4 MG/2 ML VIAL IVP PRN ×2 (03:11→09:26)
[2021-08-18] MEDS: MORPHINE SULFATE INJ 2 MG/ML DISP.SYRIN IV PRN ×3 (03:11→16:50)
--- NOTE | 2021-08-18 06:44 | NUR ---
CABLE SPLICING TECHNICIAN NOTES AWAKE & RESPONSIVE. NOT IN ANY DISTRESS. NO SOB NOTED. DENIES ANY PAIN OR DISCOMFORT AT THIS TIME. ON TELE SB @ 51 WITH IV-HL PATENT & INTACT. MONITORED ACCORDINGLY. CALL LIGHT WITHIN REACH. BED IN LOWEST POSITION. SR UP X 2 FOR SAFETY. WILL ENDORSE TO NEXT SHIFT.
[2021-08-18] MEDS: BLOOD SUGAR DIAGNOSTIC 1 EACH STRIP IN SCH ×2 (07:00→11:57)
--- NOTE | 2021-08-18 07:30 | NUR ---
FISH PITCHER OPENING NOTE RECEIVED PATIENT AWAKE IN BED. NO SOB OR RESPIRATORY DISTRESS PRESENT. A/O X4 AND AMHARIC SPEAKING. ON GOVERNMENT CONTRACTS MANAGER. SR= 56 . MIDLINE PRESENT ON PHYLLIS AND SALINE LOCKED. FLUSHES WELL. SAFETY MEASURES IN PLACE. SIDE RAILS UP X2. BED IN THE LOWEST POSITION AND LOCKED. CALL LIGHT WITHIN REACH. WILL CONTINUE TO MONITOR.
[2021-08-18 08:00] VITALS: BP 125/69
[2021-08-18] MEDS: PANTOPRAZOLE 40 MG TABLET.DR PO SCH (08:11)
[2021-08-18] MEDS: GLUCERNA SHAKE 237 ML CAN PO SCH (08:18)
[2021-08-18] MEDS: ASPIRIN EC 81 MG TABLET.DR PO SCH (09:10)
[2021-08-18] MEDS: METOPROLOL TARTRATE 25 MG TABLET PO SCH (09:10)
[2021-08-18] MEDS: LOSARTAN POTASSIUM 25 MG TABLET PO SCH (09:10)
--- NOTE | 2021-08-18 11:45 | NUR ---
PATIENT REFUSED BLOOD SUGAR CHECKS AT 1145 PM.
[2021-08-18 12:00] VITALS: BP 124/70
--- NOTE | 2021-08-18 14:51 | NUR ---
RN NOTES CALLED [facility] AT [phone] WITH THE PHONE NUMBER [phone] GAVE REPORT TO TRAN .
[2021-08-18 16:00] VITALS: BP 119/56
--- NOTE | 2021-08-18 17:05 | NUR ---
RN NOTES DISCHARGE PATIENT IN GOOD CONDITION. VITAL SIGNS NORMAL. IV ACCESS REMOVED. COVERED WITH DRESSING. NO BLEEDING NOTED. ARM BAND REMOVED. 2 MT PICKED THE PATIENT WITH ERNESTINE. PATIENT LEFT UNIT IN STABLE CONDITION. MD AND CHARGE NURSE AWARE OF THE DISCHARGE.
== END 2021-08-18 18:50 | DRG 682 ==
LOC: ER 10:03 → TRANSITION 18:46 → TELE-TD 19:08 → TELE1 08-09 14:46 → TELE-TD 08-10 20:18 → TELE1 08-11 15:14 → TELE 08-14 07:50
PROVIDERS: ADMIT Student in an Organized Health Care Education/Training Program; ATTEND Internal Medicine
PROC: 05H533Z Insertion of Infusion Device into Right Subclavian Vein, Percutaneous Approach (ICD-10-PCS; principal; 2021-08-07)
PROC: B546ZZA Ultrasonography of Right Subclavian Vein, Guidance (ICD-10-PCS; 2021-08-07)
PROC: 4A023N7 Measurement of Cardiac Sampling and Pressure, Left Heart, Percutaneous Approach (ICD-10-PCS; 2021-08-17)
PROC: B211YZZ Fluoroscopy of Multiple Coronary Arteries using Other Contrast (ICD-10-PCS; 2021-08-17)
DX: N17.0 Acute kidney failure with tubular necrosis (principal); G93.41 Metabolic encephalopathy; I21.A1 Myocardial infarction type 2; E11.649 Type 2 diabetes mellitus with hypoglycemia without coma; T68.XXXA Hypothermia, initial encounter; Z86.73 Personal history of transient ischemic attack (TIA), and cerebral infarction without residual deficits; Z59.00 Homelessness unspecified; D63.8 Anemia in other chronic diseases classified elsewhere; E78.5 Hyperlipidemia, unspecified; E83.39 Other disorders of phosphorus metabolism; E87.6 Hypokalemia; I25.10 Atherosclerotic heart disease of native coronary artery without angina pectoris; Z20.822 Contact with and (suspected) exposure to COVID-19; I12.9 Hypertensive chronic kidney disease with stage 1 through stage 4 chronic kidney disease, or unspecified chronic kidney disease; N18.9 Chronic kidney disease, unspecified; R56.9 Unspecified convulsions; D49.6 Neoplasm of unspecified behavior of brain; X31.XXXA Exposure to excessive natural cold, initial encounter
CPT/HCPCS: 36415; 70450-TC; 71045-TC; 75574; 76770-TC; 80048-TC; 80076-TC; 81001; 82962-TC; 83605-TC; 83735-TC; 84100-TC; 84443-TC; 84484-TC; 85025-TC; 85610-TC; 85730-TC; 87040-TC; 87081-TC; 87086-TC; 93307-TC; 97116-TC; 97530-TC; C1887; C9803; G0378; G0480; G0500; J0696; J1644; J1650; J1815; J2250; J2270; J2405; J3010; J3475; J3490; J7030; J7050; J7060; Q9967; U0003

== ENCOUNTER 2023-06-06 17:58 | Inpatient (IN) | payer MEDICARE, OTHER ==
[~2023-06-06] VITALS: Ht 170.2 cm; Wt 61.7 kg
[~2023-06-06 17:58] MED LIST changes: +Aspirin Ec PO; -LISI-768 PO; +LOSA25TA27 PO; +METO25TA20 PO
[2023-06-06] MEDS ORDERED: ONDANSETRON HCL/PF 4 MG/2 ML VIAL ONE (18:18)
[2023-06-06] MEDS ORDERED: KETOROLAC TROMETHAMINE INJ 30 MG/ML VIAL ONE (18:19)
[2023-06-06] MEDS ORDERED: ONDANSETRON HCL/PF 4 MG/2 ML VIAL IVP ONE (18:30)
[2023-06-06] MEDS ORDERED: KETOROLAC TROMETHAMINE INJ 30 MG/ML VIAL IV ONE (18:30)
[2023-06-06 19:07] LABS: BASOPHILS % (AUTO) 0.2 % (0.0-2.0); HEMATOCRIT 34 % (33-45); HEMOGLOBIN 10.7 g/dL (11.5-14.8); LYMPHOCYTES % (AUTO) 10.2 % (20.0-44.0); MEAN CORPUSCULAR HEMOGLOBIN 27 PG (26.0-33.0); MEAN CORPUSCULAR HGB CONC 32 g/dl (31.0-36.0); MEAN CORPUSCULAR VOLUME 86 fL (82-100); MONOCYTES # (AUTO) 0.5 K/uL (0.1-1.30); MONOCYTES % (AUTO) 5.4 % (2.0-12.0); NEUTROPHILS # (AUTO) 7.9 K/uL (1.8-8.9); NEUTROPHILS % (AUTO) 84.2 % (43.0-81.0); PLATELET COUNT (AUTO) 115 K/uL (150-450); RED BLOOD CELL COUNT(AUTO) 3.91 MIL/uL (4.0-5.2); RED CELL DISTRIBUTION WIDTH 16.3 % (11.5-15.0); WHITE BLOOD COUNT (AUTO) 9.4 K/uL (4.3-11.0)
[2023-06-06 19:36] LABS: CHLORIDE 90 mmol/L (98-107); CREATININE 1.5 mg/dL (0.6-1.3); GLUCOSE 83 mg/dL (74-106); POTASSIUM 4.4 mmol/L (3.5-5.1); SODIUM SERUM 141 mmol/L (136-145); UREA NITROGEN, BLOOD 30 mg/dL (7-18)
[2023-06-06 19:52] LABS: CARBON DIOXIDE 10 mmol/L (21-32)
[2023-06-06] MEDS ORDERED: MORPHINE SULFATE INJ 2 MG/ML DISP.SYRIN ONE (20:14)
[2023-06-06] MEDS ORDERED: LEVETIRACETAM (500MG) 500 MG in IV NS 0.9% 100 ML IV ONE (20:30)
[2023-06-06] MEDS ORDERED: IV NS 0.9% 1,000 ML BAG IV ONE (20:30)
[2023-06-06] MEDS ORDERED: MORPHINE SULFATE INJ 2 MG/ML DISP.SYRIN IV ONE (20:30)
[2023-06-06 21:24] LABS: ALANINE AMINOTRANSFERASE 38 U/L (12-78); ALKALINE PHOSPHATASE 124 U/L (46-116); ASPARTATE AMINOTRANSFERASE 78 U/L (15-37); BILIRUBIN,DIRECT 0.3 mg/dL (0.0-0.2); BILIRUBIN,TOTAL 0.7 mg/dL (0.2-1.0); TOTAL PROTEIN, SERUM 10.1 g/dL (6.4-8.2)
[2023-06-06 21:31] LABS: LIPASE > 375 U/L (16-77)
[2023-06-06] MEDS ORDERED: ONDANSETRON HCL/PF 4 MG/2 ML VIAL IVP PRN (22:00)
[2023-06-06] MEDS ORDERED: ZOLPIDEM TARTRATE 5 MG TABLET PO PRN (22:00)
[2023-06-06] MEDS ORDERED: Z GUARD REMEDY 4 OZ OINT TP PRN (22:00)
[2023-06-06] MEDS ORDERED: MAG HYDROX/AL HYDROX/SIMETH 30 ML UDC PO PRN (22:00)
[2023-06-06] MEDS ORDERED: ACETAMINOPHEN 325 MG TABLET PO PRN (22:00)
[2023-06-06] MEDS ORDERED: MAGNESIUM HYDROXIDE 30 ML UDC PO PRN (22:00)
[2023-06-06] MEDS ORDERED: DEXTROSE 50%-WATER 50 ML DISP.SYRIN IV PRN (22:30)
[2023-06-06] MEDS ORDERED: INSULIN REGULAR, HUMAN 100 UNIT/ML 3 ML VIAL SQ PRN (22:30)
[2023-06-06 22:50] VITALS: BP 164/94; TEMP 97.5; O2SAT 100
[2023-06-06] MEDS ORDERED: IV NS 0.9% 1,000 ML IV SCH (23:30)
[2023-06-07] MEDS: MORPHINE SULFATE INJ 2 MG/ML DISP.SYRIN IV PRN ×4 (00:12→21:26)
[2023-06-07] MEDS: BLOOD SUGAR DIAGNOSTIC 1 EACH STRIP IN SCH ×2 (00:18→05:46)
[2023-06-07 04:00] VITALS: BP 158/83; TEMP 97.7; O2SAT 100
[2023-06-07 07:14] LABS: BASOPHILS % (AUTO) 0.2 % (0.0-2.0); EOSINOPHILS % (AUTO) 0.3 % (0.0-6.0); HEMATOCRIT 23 % (33-45); HEMOGLOBIN 7.6 g/dL (11.5-14.8); LYMPHOCYTES # (AUTO) 1.1 K/uL (0.8-4.8); LYMPHOCYTES % (AUTO) 15.4 % (20.0-44.0); MEAN CORPUSCULAR HEMOGLOBIN 28 PG (26.0-33.0); MEAN CORPUSCULAR HGB CONC 33 g/dl (31.0-36.0); MEAN CORPUSCULAR VOLUME 83 fL (82-100); MONOCYTES # (AUTO) 0.6 K/uL (0.1-1.30); MONOCYTES % (AUTO) 7.7 % (2.0-12.0); NEUTROPHILS # (AUTO) 5.7 K/uL (1.8-8.9); NEUTROPHILS % (AUTO) 76.4 % (43.0-81.0); PLATELET COUNT (AUTO) 72 K/uL (150-450); RED BLOOD CELL COUNT(AUTO) 2.76 MIL/uL (4.0-5.2); RED CELL DISTRIBUTION WIDTH 15.6 % (11.5-15.0); WHITE BLOOD COUNT (AUTO) 7.4 K/uL (4.3-11.0)
[2023-06-07 07:31] LABS: ALANINE AMINOTRANSFERASE 30 U/L (12-78); ALBUMIN 3.5 g/dL (3.4-5.0); ALKALINE PHOSPHATASE 85 U/L (46-116); ASPARTATE AMINOTRANSFERASE 54 U/L (15-37); BILIRUBIN,TOTAL 0.8 mg/dL (0.2-1.0); CALCIUM, SERUM 7.9 mg/dL (8.5-10.1); CARBON DIOXIDE 15 mmol/L (21-32); CHLORIDE 97 mmol/L (98-107); CREATININE 1.6 mg/dL (0.6-1.3); GLUCOSE 100 mg/dL (74-106); POTASSIUM 4.2 mmol/L (3.5-5.1); SODIUM SERUM 138 mmol/L (136-145); TOTAL PROTEIN, SERUM 7.3 g/dL (6.4-8.2); UREA NITROGEN, BLOOD 30 mg/dL (7-18)
[2023-06-07 07:38] LABS: LIPASE > 375 U/L (16-77)
[2023-06-07] MEDS ORDERED: LISI-768 PO (08:05)
[2023-06-07 08:51] LABS: BAND % (MANUAL) 4 % (0.0-5.0); LYMPHOCYTES % (MANUAL) 15 % (16-48); MONOCYTES % (MANUAL) 3 % (0-11.0); NEUTROPHILS % (MANUAL) 78 (42-76)
[2023-06-07 08:53] LABS: ANISOCYTOSIS 1+; PLATELET ESTIMATE DECREASED
[2023-06-07] MEDS ORDERED: PANTOPRAZOLE 40 MG VIAL IV SCH (09:00)
[2023-06-07] MEDS ORDERED: LOSARTAN POTASSIUM 25 MG TABLET PO SCH (09:00)
[2023-06-07] MEDS ORDERED: IV LR 1000 ML 1,000 ML IV SCH (09:00)
[2023-06-07] MEDS: ASPIRIN EC 81 MG TABLET.DR PO SCH (09:46)
[2023-06-07] MEDS: FOLIC ACID 1 MG TABLET PO SCH (09:47)
[2023-06-07] MEDS: LEVETIRACETAM (250 MG) 250 MG TABLET PO SCH ×2 (09:47→21:24)
[2023-06-07] MEDS: METOPROLOL TARTRATE 25 MG TABLET PO SCH ×2 (09:48→21:25)
[2023-06-07] MEDS ORDERED: LORAZEPAM INJ 2 MG/ML VIAL IV PRN (11:30)
[2023-06-07 11:32] LABS: HEMOGLOBIN 8.3 g/dL (11.5-14.8)
[2023-06-07] MEDS: LISINOPRIL (5MG) 5 MG TABLET PO SCH (11:51)
[2023-06-07] MEDS: IV LR 1000 ML 1,000 ML IV PRN ×2 (15:31→21:14)
[2023-06-07 16:00] VITALS: BP 123/69; TEMP 98.4; O2SAT 96
[2023-06-07 19:10] LABS: HEMOGLOBIN 8.4 g/dL (11.5-14.8)
[2023-06-07] MEDS: ATORVASTATIN 10 MG TABLET PO SCH (19:53)
[2023-06-07 20:00] VITALS: BP 142/68; TEMP 98.6; O2SAT 100
[2023-06-08 04:00] VITALS: BP 145/72; TEMP 97.9; O2SAT 100
[2023-06-08] MEDS: MORPHINE SULFATE INJ 2 MG/ML DISP.SYRIN IV PRN ×4 (04:43→21:09)
[2023-06-08] MEDS: IV LR 1000 ML 1,000 ML IV PRN ×3 (04:50→18:28)
[2023-06-08 07:15] LABS: BASOPHILS % (AUTO) 0.4 % (0.0-2.0); EOSINOPHILS # (AUTO) 0.1 K/uL (0.0-0.7); EOSINOPHILS % (AUTO) 1.4 % (0.0-6.0); HEMATOCRIT 28 % (33-45); HEMOGLOBIN 9.1 g/dL (11.5-14.8); LYMPHOCYTES # (AUTO) 1.4 K/uL (0.8-4.8); LYMPHOCYTES % (AUTO) 18.5 % (20.0-44.0); MEAN CORPUSCULAR HEMOGLOBIN 28 PG (26.0-33.0); MEAN CORPUSCULAR HGB CONC 33 g/dl (31.0-36.0); MEAN CORPUSCULAR VOLUME 84 fL (82-100); MONOCYTES # (AUTO) 0.3 K/uL (0.1-1.30); MONOCYTES % (AUTO) 3.8 % (2.0-12.0); NEUTROPHILS # (AUTO) 5.9 K/uL (1.8-8.9); NEUTROPHILS % (AUTO) 75.9 % (43.0-81.0); PLATELET COUNT (AUTO) 84 K/uL (150-450); RED BLOOD CELL COUNT(AUTO) 3.31 MIL/uL (4.0-5.2); RED CELL DISTRIBUTION WIDTH 15.8 % (11.5-15.0); WHITE BLOOD COUNT (AUTO) 7.8 K/uL (4.3-11.0)
[2023-06-08] MEDS: PANTOPRAZOLE 40 MG TABLET.DR PO SCH (07:34)
[2023-06-08 08:00] LABS: ALANINE AMINOTRANSFERASE 26 U/L (12-78); ALBUMIN 3.2 g/dL (3.4-5.0); ALKALINE PHOSPHATASE 84 U/L (46-116); ASPARTATE AMINOTRANSFERASE 35 U/L (15-37); BILIRUBIN,TOTAL 0.5 mg/dL (0.2-1.0); CALCIUM, SERUM 8.9 mg/dL (8.5-10.1); CARBON DIOXIDE 23 mmol/L (21-32); CHLORIDE 98 mmol/L (98-107); CREATININE 1.2 mg/dL (0.6-1.3); GLUCOSE 106 mg/dL (74-106); MAGNESIUM 1.3 mg/dL (1.8-2.4); PHOSPHORUS 1.4 mg/dL (2.5-4.9); POTASSIUM 3.8 mmol/L (3.5-5.1); SODIUM SERUM 135 mmol/L (136-145); TOTAL PROTEIN, SERUM 7.2 g/dL (6.4-8.2); UREA NITROGEN, BLOOD 18 mg/dL (7-18)
[2023-06-08 08:32] LABS: LIPASE > 375 U/L (16-77)
[2023-06-08] MEDS ORDERED: Medication Not On Formulary EA (Potassium Chloride 8 MEQ) PO SCH (09:00)
[2023-06-08] MEDS: ASPIRIN EC 81 MG TABLET.DR PO SCH (09:25)
[2023-06-08] MEDS: FOLIC ACID 1 MG TABLET PO SCH (09:25)
[2023-06-08] MEDS: LISINOPRIL (5MG) 5 MG TABLET PO SCH (09:27)
[2023-06-08] MEDS: METOPROLOL TARTRATE 25 MG TABLET PO SCH ×2 (09:27→20:44)
[2023-06-08] MEDS ORDERED: Magnesium 1GM/D5W 100ML PREMIX PIGGYBACK IV ONE (09:30)
[2023-06-08] MEDS: LEVETIRACETAM (250 MG) 250 MG TABLET PO SCH ×2 (09:31→20:44)
[2023-06-08] MEDS: Magnesium 1GM/D5W 100ML PREMIX 100 ML IV SCH ×3 (09:52→12:32)
[2023-06-08] MEDS ORDERED: Sodium Phosphate 30 MMOL in IV NS 0.9% 250 ML IV SCH (10:00)
[2023-06-08 10:58] LABS: PLATELET ESTIMATE DECREASED
[2023-06-08 10:59] LABS: TARGET CELLS FEW
[2023-06-08 11:20] LABS: HEMOGLOBIN 8.8 g/dL (11.5-14.8)
[2023-06-08 16:00] VITALS: BP 143/96; TEMP 97.9; O2SAT 100
[2023-06-08] MEDS: ATORVASTATIN 10 MG TABLET PO SCH (17:20)
[2023-06-08 20:00] VITALS: BP 151/69; TEMP 98.1; O2SAT 100
[2023-06-09] MEDS: IV LR 1000 ML 1,000 ML IV PRN ×3 (00:15→11:28)
[2023-06-09] MEDS: MORPHINE SULFATE INJ 2 MG/ML DISP.SYRIN IV PRN ×3 (03:51→16:08)
[2023-06-09 04:00] VITALS: BP 158/72; TEMP 98.8; O2SAT 100
[2023-06-09 05:08] VITALS: O2SAT 100
[2023-06-09] MEDS: PANTOPRAZOLE 40 MG TABLET.DR PO SCH (07:46)
[2023-06-09] MEDS: ASPIRIN EC 81 MG TABLET.DR PO SCH (08:04)
[2023-06-09] MEDS: LISINOPRIL (5MG) 5 MG TABLET PO SCH (08:04)
[2023-06-09] MEDS: FOLIC ACID 1 MG TABLET PO SCH (08:04)
[2023-06-09] MEDS: LEVETIRACETAM (250 MG) 250 MG TABLET PO SCH ×2 (08:05→21:12)
[2023-06-09] MEDS: METOPROLOL TARTRATE 25 MG TABLET PO SCH ×2 (08:05→21:13)
[2023-06-09] MEDS: AMLODIPINE BESYLATE 5 MG TABLET PO SCH (09:11)
[2023-06-09 12:04] LABS: BILIRUBIN,TOTAL 0.5 mg/dL (0.2-1.0); CALCIUM, SERUM 9.1 mg/dL (8.5-10.1); CREATININE 0.8 mg/dL (0.6-1.3); MAGNESIUM 1.4 mg/dL (1.8-2.4); PHOSPHORUS 2.2 mg/dL (2.5-4.9); TOTAL PROTEIN, SERUM 6.7 g/dL (6.4-8.2)
[2023-06-09 12:09] LABS: HEMOGLOBIN 8.9 g/dL (11.5-14.8)
[2023-06-09] MEDS ORDERED: K PHOS NEUTRAL 250 MG TABLET PO ONE (16:00)
[2023-06-09 16:47] VITALS: BP 184/80; TEMP 98.1; O2SAT 99
[2023-06-09] MEDS ORDERED: NEUTRA PHOS 1 POWD.PACKET PO ONE (17:00)
[2023-06-09] MEDS: ATORVASTATIN 10 MG TABLET PO SCH (17:12)
[2023-06-09] MEDS: hydrALAZINE HCL IV 20 MG VIAL IV PRN (17:52)
[2023-06-09 22:00] VITALS: BP 131/70; TEMP 98.1; O2SAT 100
[2023-06-10] MEDS: MORPHINE SULFATE INJ 2 MG/ML DISP.SYRIN IV PRN ×3 (05:46→21:45)
[2023-06-10] MEDS: LEVETIRACETAM (250 MG) 250 MG TABLET PO SCH ×2 (08:06→21:40)
[2023-06-10] MEDS: AMLODIPINE BESYLATE 5 MG TABLET PO SCH (08:07)
[2023-06-10] MEDS: PANTOPRAZOLE 40 MG TABLET.DR PO SCH (08:07)
[2023-06-10] MEDS: ASPIRIN EC 81 MG TABLET.DR PO SCH (08:07)
[2023-06-10] MEDS: FOLIC ACID 1 MG TABLET PO SCH (08:07)
[2023-06-10] MEDS: METOPROLOL TARTRATE 25 MG TABLET PO SCH ×2 (08:09→21:40)
[2023-06-10] MEDS ORDERED: LISINOPRIL (20MG) 20 MG TABLET PO SCH (09:00)
[2023-06-10 10:00] VITALS: BP 157/68; TEMP 98.4; O2SAT 100
[2023-06-10] MEDS: ATORVASTATIN 10 MG TABLET PO SCH (17:13)
[2023-06-10] MEDS: hydrALAZINE HCL IV 20 MG VIAL IV PRN (17:17)
[2023-06-10 22:33] VITALS: BP 135/80; TEMP 98.8; O2SAT 100
[2023-06-11] MEDS: MORPHINE SULFATE INJ 2 MG/ML DISP.SYRIN IV PRN ×2 (03:41→12:59)
[2023-06-11] MEDS: hydrALAZINE HCL IV 20 MG VIAL IV PRN (06:44)
[2023-06-11 07:49] LABS: BASOPHILS % (AUTO) 0.3 % (0.0-2.0); EOSINOPHILS # (AUTO) 0.1 K/uL (0.0-0.7); HEMATOCRIT 27 % (33-45); LYMPHOCYTES # (AUTO) 1.6 K/uL (0.8-4.8); LYMPHOCYTES % (AUTO) 25.3 % (20.0-44.0); MEAN CORPUSCULAR HEMOGLOBIN 27 PG (26.0-33.0); MEAN CORPUSCULAR HGB CONC 33 g/dl (31.0-36.0); MEAN CORPUSCULAR VOLUME 82 fL (82-100); MONOCYTES # (AUTO) 0.8 K/uL (0.1-1.30); MONOCYTES % (AUTO) 12.4 % (2.0-12.0); NEUTROPHILS # (AUTO) 3.8 K/uL (1.8-8.9); PLATELET COUNT (AUTO) 190 K/uL (150-450); RED BLOOD CELL COUNT(AUTO) 3.29 MIL/uL (4.0-5.2); RED CELL DISTRIBUTION WIDTH 16.3 % (11.5-15.0); WHITE BLOOD COUNT (AUTO) 6.2 K/uL (4.3-11.0)
[2023-06-11 08:00] VITALS: BP 137/68; TEMP 98.6; O2SAT 100
[2023-06-11] MEDS ORDERED: LISINOPRIL (20MG) 20 MG TABLET PO SCH (09:00)
[2023-06-11] MEDS: ASPIRIN EC 81 MG TABLET.DR PO SCH (09:06)
[2023-06-11] MEDS: PANTOPRAZOLE 40 MG TABLET.DR PO SCH (09:06)
[2023-06-11] MEDS: LEVETIRACETAM (250 MG) 250 MG TABLET PO SCH (09:06)
[2023-06-11 09:07] VITALS: BP 137/60
[2023-06-11] MEDS: METOPROLOL TARTRATE 25 MG TABLET PO SCH (09:07)
[2023-06-11] MEDS: FOLIC ACID 1 MG TABLET PO SCH (09:07)
[2023-06-11] MEDS: AMLODIPINE BESYLATE 5 MG TABLET PO SCH (09:07)
[2023-06-11] MEDS ORDERED: LISI20TA30 PO (10:28)
[2023-06-11] MEDS ORDERED: AMLO-212 PO (10:28)
[2023-06-11 11:54] LABS: ALBUMIN 3.1 g/dL (3.4-5.0); BILIRUBIN,TOTAL 0.5 mg/dL (0.2-1.0); CALCIUM, SERUM 9.1 mg/dL (8.5-10.1); CREATININE 0.7 mg/dL (0.6-1.3); PHOSPHORUS 3.5 mg/dL (2.5-4.9); TOTAL PROTEIN, SERUM 6.8 g/dL (6.4-8.2)
[2023-06-11 12:31] LABS: POTASSIUM 2.4 mmol/L (3.5-5.1)
[2023-06-11] MEDS ORDERED: POTASSIUM CHLORIDE 20 MEQ TAB.PRT.SR PO ONE (13:00)
[2023-06-11] MEDS ORDERED: MAGNESIUM OXIDE 400 MG TABLET PO ONE (13:00)
== END 2023-06-11 13:30 | disposition home health service (06) | DRG 100 ==
LOC: ER 18:21 → MEDSG1 22:12
PROVIDERS: ADMIT Nurse Practitioner Acute Care; ATTEND Internal Medicine
PROC: 05HB33Z Insertion of Infusion Device into Right Basilic Vein, Percutaneous Approach (ICD-10-PCS; principal; 2023-06-08)
DX: G40.909 Epilepsy, unspecified, not intractable, without status epilepticus (principal); K85.20 Alcohol induced acute pancreatitis without necrosis or infection; N17.0 Acute kidney failure with tubular necrosis; E87.1 Hypo-osmolality and hyponatremia; E87.20 Acidosis, unspecified; Z59.00 Homelessness unspecified; D63.8 Anemia in other chronic diseases classified elsewhere; D50.9 Iron deficiency anemia, unspecified; Z86.73 Personal history of transient ischemic attack (TIA), and cerebral infarction without residual deficits; E83.39 Other disorders of phosphorus metabolism; E87.8 Other disorders of electrolyte and fluid balance, not elsewhere classified; I10 Essential (primary) hypertension; I25.10 Atherosclerotic heart disease of native coronary artery without angina pectoris; I44.0 Atrioventricular block, first degree; I70.0 Atherosclerosis of aorta; K21.9 Gastro-esophageal reflux disease without esophagitis; M89.8X9 Other specified disorders of bone, unspecified site; S42.032A Displaced fracture of lateral end of left clavicle, initial encounter for closed fracture; X58.XXXA Exposure to other specified factors, initial encounter; Y93.9 Activity, unspecified; Y92.9 Unspecified place or not applicable; Z79.899 Other long term (current) drug therapy; Z98.61 Coronary angioplasty status; F10.10 Alcohol abuse, uncomplicated
CPT/HCPCS: 36415; 71045-TC; 76700-TC; 80048-TC; 80053-TC; 80076-TC; 82962-TC; 83690-TC; 83735-TC; 84100-TC; 84484-TC; 85025-TC; 85027-TC; 86140-TC; 86850-TC; 94799-TC; 97110-TC; 97116-TC; 97530-TC; A4223; A9563; C9113; G0378; G0480; J0360; J1815; J1885; J1953; J2270; J2405; J3475; J7030; J7050; J7120

== ENCOUNTER 2023-12-06 17:45 | Inpatient (IN) | payer OTHER ==
[~2023-12-06] VITALS: Ht 165.1 cm; Wt 61.7 kg
[~2023-12-06 17:45] MED LIST changes: +AMLO-212 PO; +LISI-768 PO; +LISI20TA30 PO
[2023-12-06] MEDS ORDERED: ONDANSETRON HCL/PF 4 MG/2 ML VIAL ONE (18:00)
[2023-12-06] MEDS: ONDANSETRON HCL/PF 4 MG/2 ML VIAL IVP ONE (18:31)
[2023-12-06 18:43] LABS: BASOPHILS % (AUTO) 0.4 % (0.0-2.0); EOSINOPHILS % (AUTO) 0.3 % (0.0-6.0); HEMATOCRIT 30 % (33-45); HEMOGLOBIN 10.2 g/dL (11.5-14.8); LYMPHOCYTES # (AUTO) 1.4 K/uL (0.8-4.8); LYMPHOCYTES % (AUTO) 19.4 % (20.0-44.0); MEAN CORPUSCULAR HEMOGLOBIN 27 PG (26.0-33.0); MEAN CORPUSCULAR HGB CONC 34 g/dl (31.0-36.0); MEAN CORPUSCULAR VOLUME 81 fL (82-100); MONOCYTES # (AUTO) 0.4 K/uL (0.1-1.30); MONOCYTES % (AUTO) 5.6 % (2.0-12.0); NEUTROPHILS # (AUTO) 5.2 K/uL (1.8-8.9); NEUTROPHILS % (AUTO) 74.3 % (43.0-81.0); PLATELET COUNT (AUTO) 103 K/uL (150-450); RED BLOOD CELL COUNT(AUTO) 3.76 MIL/uL (4.0-5.2); RED CELL DISTRIBUTION WIDTH 19.4 % (11.5-15.0)
[2023-12-06 19:04] LABS: CALCIUM, SERUM 9.6 mg/dL (8.5-10.1); CARBON DIOXIDE 32 mmol/L (21-32); CHLORIDE 89 mmol/L (98-107); GLUCOSE 99 mg/dL (74-106); SODIUM SERUM 134 mmol/L (136-145); UREA NITROGEN, BLOOD 24 mg/dL (7-18)
[2023-12-06 19:22] LABS: ALANINE AMINOTRANSFERASE 23 U/L (12-78); ALKALINE PHOSPHATASE 99 U/L (46-116); ASPARTATE AMINOTRANSFERASE 37 U/L (15-37); BILIRUBIN,DIRECT 0.3 mg/dL (0.0-0.2); BILIRUBIN,TOTAL 0.9 mg/dL (0.2-1.0); LIPASE 76 U/L (16-77); TOTAL PROTEIN, SERUM 8.9 g/dL (6.4-8.2)
[2023-12-06] MEDS ORDERED: POTASSIUM CHLORIDE 20 MEQ TAB.PRT.SR PO ONE (19:49)
[2023-12-06] MEDS: POTASSIUM CHLORIDE 20 MEQ TAB.PRT.SR PO ONE (19:54)
[2023-12-06] MEDS ORDERED: Z GUARD REMEDY 4 OZ OINT TP PRN (20:30)
[2023-12-06] MEDS ORDERED: MAGNESIUM HYDROXIDE 30 ML UDC PO PRN (20:30)
[2023-12-06] MEDS ORDERED: DEXTROSE 50%-WATER 50 ML DISP.SYRIN IV PRN (20:30)
[2023-12-06] MEDS: LISINOPRIL (10MG) 10 MG TABLET PO SCH (23:06)
[2023-12-06] MEDS: LEVETIRACETAM (250 MG) 250 MG TABLET PO SCH (23:06)
[2023-12-06] MEDS: BLOOD SUGAR DIAGNOSTIC 1 EACH STRIP IN SCH (23:23)
[2023-12-06] MEDS: INSULIN REGULAR, HUMAN 100 UNIT/ML 3 ML VIAL SQ PRN (23:24)
[2023-12-06] MEDS: ONDANSETRON HCL/PF 4 MG/2 ML VIAL IVP PRN (23:24)
[2023-12-06 23:52] LABS: CALCIUM, SERUM 9.4 mg/dL (8.5-10.1)
[2023-12-07] VITALS (8 sets, daily range): BP systolic 140–166; BP diastolic 71–98; TEMP 98.1–99.3; O2SAT 95–99
[2023-12-07 00:05] LABS: MAGNESIUM 1.1 mg/dL (1.8-2.4)
[2023-12-07] MEDS: TRAMADOL HCL 50 MG TABLET PO PRN (00:25)
[2023-12-07] MEDS: POTASSIUM CHLORIDE 10 MEQ TABLET.SA PO ONE (00:25)
[2023-12-07] MEDS: IV NS 0.9% 1,000 ML IV PRN (00:26)
[2023-12-07] MEDS: Magnesium 1GM/D5W 100ML PREMIX 100 ML IV SCH (00:26)
[2023-12-07 07:05] LABS: BASOPHILS % (AUTO) 0.1 % (0.0-2.0); EOSINOPHILS % (AUTO) 0.8 % (0.0-6.0); HEMATOCRIT 26 % (33-45); HEMOGLOBIN 8.8 g/dL (11.5-14.8); LYMPHOCYTES # (AUTO) 1.6 K/uL (0.8-4.8); LYMPHOCYTES % (AUTO) 27.2 % (20.0-44.0); MEAN CORPUSCULAR HEMOGLOBIN 27 PG (26.0-33.0); MEAN CORPUSCULAR HGB CONC 34 g/dl (31.0-36.0); MEAN CORPUSCULAR VOLUME 80 fL (82-100); MONOCYTES # (AUTO) 0.4 K/uL (0.1-1.30); MONOCYTES % (AUTO) 6.3 % (2.0-12.0); NEUTROPHILS # (AUTO) 3.8 K/uL (1.8-8.9); NEUTROPHILS % (AUTO) 65.6 % (43.0-81.0); PLATELET COUNT (AUTO) 93 K/uL (150-450); RED BLOOD CELL COUNT(AUTO) 3.26 MIL/uL (4.0-5.2); RED CELL DISTRIBUTION WIDTH 19.4 % (11.5-15.0); WHITE BLOOD COUNT (AUTO) 5.9 K/uL (4.3-11.0)
[2023-12-07 07:18] LABS: ALBUMIN 3.2 g/dL (3.4-5.0); BILIRUBIN,TOTAL 0.7 mg/dL (0.2-1.0); MAGNESIUM 3.1 mg/dL (1.8-2.4); PHOSPHORUS 2.6 mg/dL (2.5-4.9); POTASSIUM 3.4 mmol/L (3.5-5.1); TOTAL PROTEIN, SERUM 7.3 g/dL (6.4-8.2)
[2023-12-07 07:23] LABS: THYROID STIMULATING HORMONE 1.531 uIU/mL (0.358-3.74)
[2023-12-07] MEDS: PANTOPRAZOLE 40 MG TABLET.DR PO SCH (08:35)
[2023-12-07] MEDS: ASPIRIN EC 81 MG TABLET.DR PO SCH (08:35)
[2023-12-07 11:39] LABS: ADD URINE CULTURE NO; APPEARANCE,URINE CLEAR (CLEAR); BACTERIA,URINE Rare /HPF (None Seen); BILIRUBIN,URINE 1+ (NEGATIVE); BLOOD, URINE TRACE-INTA Ery/uL (NEGATIVE); COLOR,URINE YELLOW (YELLOW); KETONES,URINE TRACE mg/dL (NEGATIVE); LEUKOCYTE ESTERASE ,URINE NEGATIVE (NEGATIVE); NITRITE, URINE NEGATIVE (NEGATIVE); PROTEIN,URINE 1+ mg/dl (NEGATIVE); SQUAMOUS EPITHELIAL CELL,UR Few /HPF (None Seen); UGLUCOSE TRACE mg/dL (NEGATIVE); UROBILINOGEN,URINE 0.2 EU/dL (0.2); WBC,URINE 0-2 /HPF (0-3)
[2023-12-07 11:43] LABS: ANISOCYTOSIS 1+; BASOPHILS % (MANUAL) 0 % (0.0-2.0); EOSINOPHILS % (MANUAL) 0 % (0-4); HYPOCHROMASIA 1+; LYMPHOCYTES % (MANUAL) 22 % (16-48); MONOCYTES % (MANUAL) 8 % (0-11.0); NEUTROPHILS % (MANUAL) 70 (42-76); PLATELET ESTIMATE DECREASED; TARGET CELLS 1+
[2023-12-07 12:10] LABS: AMPHETAMINE, URINE NEGATIVE (NEGATIVE); BARBITURATE, URINE NEGATIVE (NEGATIVE); BENZODIAZEPINE, URINE NEGATIVE (NEGATIVE); CANNABINOID, URINE NEGATIVE (NEGATIVE); COCCAINE, URINE NEGATIVE (NEGATIVE); OPIATE, URINE NEGATIVE (NEGATIVE); PHENCYCLIDINE SCREEN,URINE NEGATIVE (NEGATIVE)
[2023-12-07] MEDS: hydrALAZINE HCL IV 20 MG VIAL IV PRN (16:45)
[2023-12-07] MEDS: IV NS 0.9% 500 ML IV ONE (17:52)
[2023-12-07] MEDS: POTASSIUM CHLORIDE 20 MEQ TAB.PRT.SR PO ONE (18:50)
[2023-12-07] MEDS: ATORVASTATIN 40 MG TABLET PO SCH (21:51)
[2023-12-07] MEDS: TEMAZEPAM 7.5 MG CAPSULE PO PRN (23:20)
[2023-12-08] VITALS (8 sets, daily range): BP systolic 138–161; BP diastolic 70–97; TEMP 98–99.5; O2SAT 96–99
[2023-12-08 15:27] LABS: BASOPHILS % (AUTO) 0.1 % (0.0-2.0); EOSINOPHILS # (AUTO) 0.1 K/uL (0.0-0.7); EOSINOPHILS % (AUTO) 2.1 % (0.0-6.0); HEMATOCRIT 26 % (33-45); HEMOGLOBIN 8.8 g/dL (11.5-14.8); LYMPHOCYTES # (AUTO) 1.2 K/uL (0.8-4.8); LYMPHOCYTES % (AUTO) 30.6 % (20.0-44.0); MEAN CORPUSCULAR HEMOGLOBIN 27 PG (26.0-33.0); MEAN CORPUSCULAR HGB CONC 33 g/dl (31.0-36.0); MEAN CORPUSCULAR VOLUME 81 fL (82-100); MONOCYTES # (AUTO) 0.4 K/uL (0.1-1.30); MONOCYTES % (AUTO) 9.3 % (2.0-12.0); NEUTROPHILS # (AUTO) 2.2 K/uL (1.8-8.9); NEUTROPHILS % (AUTO) 57.9 % (43.0-81.0); PLATELET COUNT (AUTO) 73 K/uL (150-450); RED BLOOD CELL COUNT(AUTO) 3.24 MIL/uL (4.0-5.2); RED CELL DISTRIBUTION WIDTH 19.5 % (11.5-15.0); WHITE BLOOD COUNT (AUTO) 3.9 K/uL (4.3-11.0)
[2023-12-08 16:16] LABS: CALCIUM, SERUM 9.2 mg/dL (8.5-10.1); CREATININE 1.1 mg/dL (0.6-1.3); MAGNESIUM 1.5 mg/dL (1.8-2.4); PHOSPHORUS 3.1 mg/dL (2.5-4.9); POTASSIUM 3.2 mmol/L (3.5-5.1)
[2023-12-08] MEDS: NIFEdipine XL (30MG) 30 MG TAB PO SCH (18:41)
[2023-12-08 19:44] LABS: ANISOCYTOSIS 1+; EOSINOPHILS % (MANUAL) 2 % (0-4); HYPOCHROMASIA 1+; LYMPHOCYTES % (MANUAL) 32 % (16-48); MONOCYTES % (MANUAL) 2 % (0-11.0); NEUTROPHILS % (MANUAL) 64 (42-76); PLATELET ESTIMATE DECREASED
[2023-12-08 19:45] LABS: TARGET CELLS 1+
[2023-12-08] MEDS: TEMAZEPAM 7.5 MG CAPSULE PO PRN (21:36)
[2023-12-08] MEDS: ACETAMINOPHEN 325 MG TABLET PO PRN (21:37)
[2023-12-09] VITALS (7 sets, daily range): BP systolic 123–143; BP diastolic 70–83; TEMP 97.7–99.7; O2SAT 98–100
[2023-12-09 07:05] LABS: BASOPHILS % (AUTO) 0.3 % (0.0-2.0); EOSINOPHILS # (AUTO) 0.1 K/uL (0.0-0.7); EOSINOPHILS % (AUTO) 1.6 % (0.0-6.0); HEMATOCRIT 24 % (33-45); LYMPHOCYTES # (AUTO) 1.3 K/uL (0.8-4.8); LYMPHOCYTES % (AUTO) 37.3 % (20.0-44.0); MEAN CORPUSCULAR HEMOGLOBIN 27 PG (26.0-33.0); MEAN CORPUSCULAR HGB CONC 33 g/dl (31.0-36.0); MEAN CORPUSCULAR VOLUME 82 fL (82-100); MONOCYTES # (AUTO) 0.4 K/uL (0.1-1.30); MONOCYTES % (AUTO) 12.6 % (2.0-12.0); NEUTROPHILS # (AUTO) 1.7 K/uL (1.8-8.9); NEUTROPHILS % (AUTO) 48.2 % (43.0-81.0); PLATELET COUNT (AUTO) 80 K/uL (150-450); RED BLOOD CELL COUNT(AUTO) 2.95 MIL/uL (4.0-5.2); RED CELL DISTRIBUTION WIDTH 19.2 % (11.5-15.0); WHITE BLOOD COUNT (AUTO) 3.6 K/uL (4.3-11.0)
[2023-12-09 07:39] LABS: CALCIUM, SERUM 8.8 mg/dL (8.5-10.1); MAGNESIUM 1.4 mg/dL (1.8-2.4); PHOSPHORUS 3.8 mg/dL (2.5-4.9); POTASSIUM 3.6 mmol/L (3.5-5.1)
[2023-12-09 08:48] LABS: THYROID STIMULATING HORMONE 3.153 uIU/mL (0.358-3.74); URIC ACID 8.1 mg/dL (2.6-7.2)
[2023-12-09 09:25] LABS: ANISOCYTOSIS 1+; BAND % (MANUAL) 1 % (0.0-5.0); EOSINOPHILS % (MANUAL) 2 % (0-4); LYMPHOCYTES % (MANUAL) 39 % (16-48); MONOCYTES % (MANUAL) 7 % (0-11.0); NEUTROPHILS % (MANUAL) 51 (42-76); PLATELET ESTIMATE DECREASED
[2023-12-09 10:01] LABS: MAGNESIUM 1.4 mg/dL (1.8-2.4); PHOSPHORUS 3.8 mg/dL (2.5-4.9)
[2023-12-09] MEDS: MAGNESIUM OXIDE 400 MG TABLET PO ONE (10:59)
[2023-12-10] VITALS: BP 146/92; TEMP 98.3; O2SAT 100
[2023-12-10 01:04] VITALS: O2SAT 98
[2023-12-10 04:00] VITALS: BP 135/87; TEMP 98.1; O2SAT 100
[2023-12-10 08:00] VITALS: BP 133/84; TEMP 97.5; O2SAT 100
[2023-12-10 12:00] VITALS: BP 146/74; TEMP 97.5; O2SAT 99
[2023-12-10 16:00] VITALS: BP 125/67; TEMP 97.5; O2SAT 100
== END 2023-12-10 21:15 | disposition left against medical advice (07) | DRG 641 ==
LOC: ER 17:50 → TELE1 20:15 → MEDSG1 12-10 12:05
PROVIDERS: ADMIT Nurse Practitioner Family; ATTEND Nurse Practitioner Acute Care
DX: E86.1 Hypovolemia (principal); D68.69 Other thrombophilia; Z59.00 Homelessness unspecified; K86.1 Other chronic pancreatitis; I45.81 Long QT syndrome; E87.1 Hypo-osmolality and hyponatremia; K29.20 Alcoholic gastritis without bleeding; E87.6 Hypokalemia; I25.10 Atherosclerotic heart disease of native coronary artery without angina pectoris; K21.9 Gastro-esophageal reflux disease without esophagitis; D64.9 Anemia, unspecified; Z74.09 Other reduced mobility; E11.9 Type 2 diabetes mellitus without complications; F17.210 Nicotine dependence, cigarettes, uncomplicated; I10 Essential (primary) hypertension; Z86.73 Personal history of transient ischemic attack (TIA), and cerebral infarction without residual deficits; K80.20 Calculus of gallbladder without cholecystitis without obstruction; D69.6 Thrombocytopenia, unspecified; G40.909 Epilepsy, unspecified, not intractable, without status epilepticus; R07.89 Other chest pain; T42.75XA Adverse effect of unspecified antiepileptic and sedative-hypnotic drugs, initial encounter; Y92.009 Unspecified place in unspecified non-institutional (private) residence as the place of occurrence of the external cause; F10.21 Alcohol dependence, in remission
CPT/HCPCS: 36415; 71045-TC; 80048-TC; 80053-TC; 80061-TC; 80076-TC; 81001; 82728-TC; 82962-TC; 83540-TC; 83690-TC; 83735-TC; 83880; 84100-TC; 84443-TC; 84484-TC; 84550-TC; 85025-TC; 87086-TC; 93307-TC; 93970-TC; 94760-TC; 94761-TC; 94799-TC; 97110-TC; 97112-TC; 97116-TC; 97530-TC; 97535-TC; A4223; G0378; J0360; J1815; J2405; J3475; J7030; J7040

== ENCOUNTER 2025-07-23 14:44 | Inpatient (IN) | payer MEDICARE, OTHER ==
[~2025-07-23] VITALS: Ht 162.6 cm; Wt 68.0 kg
[2025-07-23] MEDS: IV NS 0.9% 1,000 ML BAG IV ONE (15:06)
[2025-07-23] MEDS: LEVETIRACETAM (500MG) 1,000 MG in IV NS 0.9% 90 ML IV SCH (15:08)
[2025-07-23 15:16] LABS: PLATELET COUNT (AUTO) 153 K/uL (150-450); RED BLOOD CELL COUNT(AUTO) 3.57 MIL/uL (4.0-5.2); RED CELL DISTRIBUTION WIDTH 14.6 % (11.5-15.0); WHITE BLOOD COUNT (AUTO) 3.5 K/uL (4.3-11.0)
[2025-07-23 15:26] LABS: CALCIUM, SERUM 8.8 mg/dL (8.5-10.1); CREATININE 1.5 mg/dL (0.6-1.3); SODIUM SERUM 147.0 mmol/L (136-145); UREA NITROGEN, BLOOD 20.0 mg/dL (7-18)
[2025-07-23] MEDS ORDERED: LEVE500T9 PO (15:51)
[2025-07-24] MEDS: LEVETIRACETAM (250 MG) 250 MG TABLET PO SCH (09:00)
[2025-07-24] MEDS ORDERED: LEVETIRACETAM (250 MG) 250 MG TABLET ONE (10:24)
[2025-07-24] MEDS ORDERED: THIA100T68 PO (13:41)
[2025-07-24] MEDS ORDERED: AMLO-213 PO (13:41)
[2025-07-24 14:00] VITALS: BP 175/89; TEMP 98.6; O2SAT 96
[2025-07-24] MEDS ORDERED: TEMAZEPAM 7.5 MG CAPSULE PO PRN (15:00)
[2025-07-24] MEDS ORDERED: LORAZEPAM 0.5 MG TABLET PO PRN (15:00)
[2025-07-24] MEDS ORDERED: MAGNESIUM HYDROXIDE 30 ML UDC PO PRN (15:00)
[2025-07-24] MEDS ORDERED: MAG HYDROX/AL HYDROX/SIMETH 30 ML UDC PO PRN (15:00)
[2025-07-24 16:00] VITALS: BP 178/85; TEMP 98.4; O2SAT 98
[2025-07-24] MEDS: BLOOD SUGAR DIAGNOSTIC 1 EACH STRIP IN ONE (16:18)
[2025-07-24] MEDS ORDERED: LORAZEPAM 1 MG TABLET PO PRN (17:00)
[2025-07-24] MEDS: AMLODIPINE BESYLATE 5 MG TABLET PO ONE (17:07)
[2025-07-24] MEDS: ATORVASTATIN 10 MG TABLET PO SCH (17:58)
[2025-07-24 18:05] VITALS: BP 154/74
[2025-07-24 20:00] VITALS: BP 154/98; TEMP 98.1; O2SAT 100
[2025-07-25] MEDS: PANTOPRAZOLE 40 MG TABLET.DR PO SCH (06:33)
[2025-07-25 08:00] VITALS: BP 140/90; TEMP 98.2; O2SAT 98
[2025-07-25] MEDS: FOLIC ACID 1 MG TABLET PO SCH (08:15)
[2025-07-25] MEDS: LEVETIRACETAM (250 MG) 250 MG TABLET PO SCH (08:15)
[2025-07-25] MEDS: THIAMINE HCL 100 MG TABLET PO SCH (08:15)
[2025-07-25] MEDS: SERTRALINE HCL 50 MG TABLET PO SCH (08:15)
[2025-07-25] MEDS: AMLODIPINE BESYLATE 10 MG TABLET PO SCH (08:15)
[2025-07-25 16:00] VITALS: BP 134/74; TEMP 99; O2SAT 98
[2025-07-25 20:00] VITALS: BP 144/79; TEMP 99.3; O2SAT 99
[2025-07-26 08:00] VITALS: BP 137/86; TEMP 97.5; O2SAT 98
[2025-07-26 16:00] VITALS: BP 130/77; TEMP 98.1; O2SAT 99
[2025-07-26 20:00] VITALS: BP 131/80; TEMP 97.7; O2SAT 100
[2025-07-27 20:00] VITALS: BP 127/71; TEMP 98.2; O2SAT 97
[2025-07-27] MEDS: ACETAMINOPHEN 325 MG TABLET PO PRN (20:25)
[2025-07-28 20:04] VITALS: BP 131/66; TEMP 99; O2SAT 98
[2025-07-29 08:00] VITALS: BP 135/74; TEMP 97.7; O2SAT 98
[2025-07-29 16:00] VITALS: BP 117/65; TEMP 97.8; O2SAT 99
[2025-07-29] MEDS: HYDROCODONE/APAP 5/325MG TABLET PO PRN (20:36)
[2025-07-29 21:06] VITALS: BP 125/60; TEMP 98.8; O2SAT 99
[2025-07-30 08:02] VITALS: BP 154/76; TEMP 98.1; O2SAT 99
[2025-07-30 08:52] VITALS: BP 154/74
== END 2025-07-30 13:05 | DRG 885 ==
LOC: ER 14:46 → GPSOV 07-24 13:23 → GPS 07-28 18:46
PROVIDERS: ADMIT Psychiatry & Neurology Psychiatry
DX: F33.1 Major depressive disorder, recurrent, moderate (principal); N17.0 Acute kidney failure with tubular necrosis; E87.0 Hyperosmolality and hypernatremia; F29 Unspecified psychosis not due to a substance or known physiological condition; D63.8 Anemia in other chronic diseases classified elsewhere; E86.0 Dehydration; E11.9 Type 2 diabetes mellitus without complications; I10 Essential (primary) hypertension; F10.21 Alcohol dependence, in remission; G40.909 Epilepsy, unspecified, not intractable, without status epilepticus; Z59.02 Unsheltered homelessness; E87.6 Hypokalemia; E86.1 Hypovolemia; I25.10 Atherosclerotic heart disease of native coronary artery without angina pectoris; E83.89 Other disorders of mineral metabolism; Z86.73 Personal history of transient ischemic attack (TIA), and cerebral infarction without residual deficits; Z79.899 Other long term (current) drug therapy; Z95.5 Presence of coronary angioplasty implant and graft; Z99.3 Dependence on wheelchair; F17.210 Nicotine dependence, cigarettes, uncomplicated
CPT/HCPCS: 36415; 71045-TC; 80048-TC; 82962-TC; 85025-TC; 87081-TC; J1953; J7030